=== PATIENT | male | born 1935 | race Caucasian/White ===

== ENCOUNTER 2019-03-13 09:14 | Inpatient (IN) | payer MEDICARE, BC ==
[~2019-03-13] VITALS: Ht 162.6 cm; Wt 54.4 kg
[2019-03-13] VITALS (7 sets, daily range): BP systolic 102–152; BP diastolic 44–68; BMI 20.6
[2019-03-13] MEDS ORDERED: PACERONE100 MG (09:21)
[2019-03-13] MEDS ORDERED: PROPECIA1 MG PO (09:21)
[2019-03-13] MEDS ORDERED: TIROSINT88 MCG PO (09:21)
[2019-03-13] MEDS ORDERED: PACERONE100 MG PO (09:21)
[2019-03-13] MEDS ORDERED: UROXATRAL10 MG PO (09:22)
[2019-03-13] MEDS ORDERED: ULTRAM50 MG PO (09:22)
[2019-03-13] MEDS ORDERED: SINGULAIR 4 MG C4 MG PO (09:22)
[2019-03-13] MEDS ORDERED: LOPRESSOR25 MG PO (09:23)
[2019-03-13] MEDS ORDERED: NEXIUM40 MG PO (09:23)
[2019-03-13] MEDS ORDERED: LIPITOR20 MG PO (09:28)
[2019-03-13] MEDS ORDERED: XARELTO10 MG PO (09:28)
[2019-03-13 10:14] LABS: HEMATOCRIT 32.4 % (42.0-54.0); HEMOGLOBIN 11.5 g/dL (13.5-17.5); MCHC 35.5 g/dL (31.0-37.0); MCV 92.8 fL (80.0-100.0); PLATELET COUNT 241 10x3/uL (130-400); RBC 3.49 10x6/uL (4.20-6.10); RDW 13.6 % (11.5-14.5); WBC 20.5 10x3/uL (4.8-10.8)
[2019-03-13 10:21] LABS: BILIRUBIN - TOTAL 0.66 mg/dL (0.2-1.3); CALCIUM 8.8 mg/dL (8.5-10.1); CARBON DIOXIDE 28.1 mmol/L (21.0-32.0); CREATININE - SERUM 1.2 mg/dL (0.6-1.3); POTASSIUM - SERUM 4.1 mmol/L (3.5-5.1); PROTEIN - SERUM 6.4 g/dL (6.4-8.2)
[2019-03-13 10:31] LABS: T4 THYROXINE 10.2 ug/dL (4.7-13.3); THYROID STIMULATING HORMONE 0.78 uIU/mL (0.36-3.74)
--- NOTE | 2019-03-13 11:20 | NUR ---
PATIENT SLEEPING; AWAKES TO VERBAL STIMULI; RESPIRATIONS EVEN AND UNLABORED; COLOR WNL FOR RACE; BLANKET GIVEN; NO OTHER NEEDS NOTED; FAMILY/PATIENT UPDATED ON PLAN OF CARE AND DELAYS IN CARE; WILL CONTINUE TO MONITOR.
[2019-03-13 12:11] LABS: APPEARANCE CLEAR (CLEAR); BILIRUBIN NEGATIVE (NEGATIVE); COLOR YELLOW (YELLOW); GLUCOSE NEGATIVE (NEGATIVE); KETONE NEGATIVE (NEGATIVE); NITRITE NEGATIVE (NEGATIVE); PROTEIN 1+ mg/dL (NEGATIVE); UROBILINOGEN NORMAL (NORMAL)
[2019-03-13 12:12] LABS: BACTERIA FEW /hpf (NONE SEEN); EPITHELIAL CELLS NSEEN /hpf (0-5); RED CELLS - URINE 0-5 /hpf (0-5); WHITE CELLS - URINE 0-5 /hpf (0-5)
--- NOTE | 2019-03-13 12:20 | NUR ---
FAMILY AT BEDSIDE; PATIENT SLEEPING; AROUSES TO VERBAL SITMULI; HE IS SLIGHTLY HARD OF HEARING AND NEEDS TO BE SPOKE TO DIRECTLY FOR HIM TO UNDERSTAND; NO NEEDS NOTED; FAMILY/PATIENT UPDATED ON PLAN OF CARE AND DELAYS IN CARE; WILL CONTINUE TO MONITOR.
[2019-03-13 12:34] LABS: LYMPHOCYTES 1 % (15-50); MONOCYTES 3 % (2-11); NEUTROPHILS 93 % (40-80)
[2019-03-13 12:35] LABS: PLATELET ESTIMATE NORMAL
--- NOTE | 2019-03-13 13:20 | NUR ---
ASSISTED PATEINT TO RESTROOM WITH THE USE OF A WHEELCHAIR; GAIT IS UNSTEADY AND HE REQUIRES ASSIST WITH AMBULATION; HE DENIES ANY OTHER NEEDS; FAMILY LEFT TO GET SOME LUNCH; PATIENT UPDATED ON PLAN OF CARE; WILL CONTINUE TO MONITOR.
[2019-03-13] MEDS ORDERED: TIMOPTIC 0.5 % O5 ML RIGHT EYE (14:18)
[2019-03-13] MEDS ORDERED: TRUSOPT 2 % OPT10 ML RIGHT EYE (14:19)
[2019-03-13] MEDS ORDERED: XALATAN 0.0052.5 ML LEFT EYE (14:20)
--- NOTE | 2019-03-13 15:47 | NUR ---
REC'D PT FROM ER NURSE. FAMILY AT BEDSIDE. PT AAOX1. PT "FEELING URGE TO PEE BUT CAN'T". PT CONTINUES TO ATTEMPT TO URNIATE WITHOUT SUCCESS. BLADDER SCAN-874ML. CALLED Shakira CHAVARRIA TO FOR 16 LUX[place]BOURGISH F/C. F/C PLACED BY STERILE TECHNIQUE. CLEAR YELLOW URINE DRAININF TO BAG BY GRAVITY. 1300ML NOTED. NO S/S OF ACUTE DISTRESS. CL IN PLACE.
[2019-03-13 17:34] LABS: % SATURATION 11 % (15-55); IRON 33 ug/dl (35-150); TOTAL IRON BIND CAPACITY 298 ug/dl (260-445); UNSAT IRON BIND CAPACITY 265 ug/dl (150-375)
--- NOTE | 2019-03-13 17:43 | NUR ---
PT ATE 100% OF MEAL. SUPERVISED PT AND PT DID WELL. IV TO L ARM BLOODY. CLEANED SITED AND PLACED GAUZE UNDERNEATH FOR PRESSURE. FLUSHED WELL AND EDUARD BACK BLOOD. NO S/S OF ACUTE DISTRESS. CL IN PLACE. AUDI ALARM ON.
--- NOTE | 2019-03-13 18:33 | NUR ---
SPOKE WITH BRAYAN, DAUGHTER, ALL AM MEDS GIVEN THIS MORNING.
--- NOTE | 2019-03-13 19:35 | NUR ---
ASSUMED PT CARE. PT ATTEMTING TO GET OOB. REDIRECTED AND ASST. BACK IN BED. FALL PRECATIONS IN PLACE. PT ALERT ONLY TO SELF. RR EVEN AND UNLABORED. NO FURHTER NEEDS EXPRESSED. NO S/S OF DISTRESS NOTED. WILL CPOC.
[2019-03-14 00:27] VITALS: BP 132/63
[2019-03-14 05:25] VITALS: BP 111/60
[2019-03-14 06:56] LABS: BASOPHILS 0.1 % (0-2); EOSINOPHILS 0.2 % (0-7); HEMATOCRIT 30.5 % (42.0-54.0); HEMOGLOBIN 10.9 g/dL (13.5-17.5); IMMATURE GRANULOCYTES 0.2 % (0-5); LYMPHOCYTES 8.3 % (15-50); MCH 32.3 pg (26.0-34.0); MCHC 35.7 g/dL (31.0-37.0); MEAN PLATELET VOLUME 10.8 fL (7.4-10.4); MONOCYTES 8.3 % (2-11); NEUTROPHILS 82.9 % (40-80); PLATELET COUNT 250 10x3/uL (130-400); RBC 3.37 10x6/uL (4.20-6.10); RDW 13.3 % (11.5-14.5)
[2019-03-14 06:59] LABS: MCV 90.5 fL (80.0-100.0); WBC 13.1 10x3/uL (4.8-10.8)
--- NOTE | 2019-03-14 07:15 | NUR ---
PT RESTING IN BED, VSS AND WNL. SHIFT ASSESSMENT PERFORMED. DENIES ANY NEEDS AT THIS TIME. WILL CONT TO FOLLOW POC
[2019-03-14 07:19] LABS: CALCIUM 8.1 mg/dL (8.5-10.1); CARBON DIOXIDE 25.3 mmol/L (21.0-32.0); GLUCOSE 91 mg/dL (74-106); UREA NITROGEN 12 mg/dL (7-18)
[2019-03-14 07:32] LABS: CALC OSMOLALITY 236 mosm/kg (275-300); CHLORIDE - SERUM 85 mmol/L (98-107); CREATININE - SERUM 0.7 mg/dL (0.6-1.3); POTASSIUM - SERUM 3.1 mmol/L (3.5-5.1); SODIUM 117 mmol/L (136-145); eGFR NON AFRICAN AMERICAN > 90 mL/min (90-120)
--- NOTE | 2019-03-14 07:41 | NUR ---
RECIEVED CALL FROM LAB THAT PT NA IS 117. PAGED RACHEL FAGAN AND WAS GIVEN NEW ORDER TO CONSULT RENAL. CONSULT ORDERED. WILL CONT TO FOLLOW POC
[2019-03-14 07:42] VITALS: BP 116/60
[2019-03-14 09:47] LABS: CALC OSMOLALITY 236 mosm/kg (275-300); CARBON DIOXIDE 28.3 mmol/L (21.0-32.0); CHLORIDE - SERUM 86 mmol/L (98-107); CREATININE - SERUM 0.7 mg/dL (0.6-1.3); GLUCOSE 85 mg/dL (74-106); POTASSIUM - SERUM 3.5 mmol/L (3.5-5.1); UREA NITROGEN 13 mg/dL (7-18); eGFR NON AFRICAN AMERICAN > 90 mL/min (90-120)
[2019-03-14 09:51] LABS: SODIUM 118 mmol/L (136-145)
--- NOTE | 2019-03-14 11:57 | NUR ---
PT RESTING IN BED, DENIES ANY NEEDS AT THIS TIME, WILL CONT TO FOLLOW POC
[2019-03-14 14:34] VITALS: BP 98/60
--- NOTE | 2019-03-14 16:30 | NUR ---
PIV TO PT LEFT FA INFILTRATED, PIV REMOVED WITH CATHETER TIP INTACT. 22G PIC INSERTED TO PT RIGHT UPPER ARM X2 ATTEMPT. PT TOLERATED WELL. WILL CONT TO FOLLOW POC
--- NOTE | 2019-03-14 16:54 | NUR ---
MEAL ASSISTANCE PROVIDED. PT ATE 50% DENIES ANY NEEDS AT THIS TIME. WILL CONT TO FOLLOW POC
--- NOTE | 2019-03-14 18:21 | NUR ---
PT IS BECOMING RESTLESS AND KEEPS STATING THAT HE WANTS SOME WATER. CALLED HIS DAUGHTER TO SEE IF SHE COULD COME SIT WITH PT AND DAUGHTER STATES SHE LIVES AN HOUR AWAY AND COULD NOT COME. WILL CONT TO ATTEMPT TO REDIRECT PT
--- NOTE | 2019-03-14 19:15 | NUR ---
PT IS PULLOING SOME AT GIBSON AND DEMANDING WATER I ATTEMPTED TO EXPLAIN THAT HE CAN NOT HAVE ANY FREE WATER AT THIS TIME SR X2 AND BED IS LOW AND LOCKED IV IS IN RT SHOULDER AREA PT IS ALERT BUT DOES NOT RETURN ANSWERS TO MY QUESTIONS. LCTA SKIN WARM AND DRY
[2019-03-14 19:48] VITALS: BP 144/61
--- NOTE | 2019-03-14 19:57 | NUR ---
PT BECAME AGITATED DURING VS CHECK GRABING MY ARM AND ATTEMPING TO TWIST MY WRIST BUT HE WAS CALM AFTERWARD AND ALLOWED LAB TO PREFORM BLOODDRAW
[2019-03-14 20:40] LABS: CALC OSMOLALITY 250 mosm/kg (275-300); CALCIUM 8.1 mg/dL (8.5-10.1); CARBON DIOXIDE 26.8 mmol/L (21.0-32.0); CHLORIDE - SERUM 92 mmol/L (98-107); CREATININE - SERUM 0.8 mg/dL (0.6-1.3); GLUCOSE 98 mg/dL (74-106); SODIUM 124 mmol/L (136-145); UREA NITROGEN 14 mg/dL (7-18); eGFR NON AFRICAN AMERICAN > 90 mL/min (90-120)
[2019-03-14 20:59] LABS: POTASSIUM - SERUM 3.8 mmol/L (3.5-5.1)
--- NOTE | 2019-03-15 00:34 | NUR ---
I have reviewed this patient and I concur with the Shift Assessment completed by the Licensed Practical Nurse today this shift.
[2019-03-15 00:56] VITALS: BP 145/60
[2019-03-15 06:15] LABS: BASOPHILS 0.1 % (0-2); EOSINOPHILS 0.4 % (0-7); HEMOGLOBIN 12.4 g/dL (13.5-17.5); IMMATURE GRANULOCYTES 0.3 % (0-5); LYMPHOCYTES 13.7 % (15-50); MCH 32.9 pg (26.0-34.0); MCHC 36.5 g/dL (31.0-37.0); MCV 90.2 fL (80.0-100.0); MONOCYTES 12.2 % (2-11); NEUTROPHILS 73.3 % (40-80); PLATELET COUNT 278 10x3/uL (130-400); RBC 3.77 10x6/uL (4.20-6.10); RDW 13.3 % (11.5-14.5)
[2019-03-15 06:38] VITALS: BP 190/42
[2019-03-15 06:52] LABS: CALC OSMOLALITY 259 mosm/kg (275-300); CALCIUM 8.7 mg/dL (8.5-10.1); CARBON DIOXIDE 27.9 mmol/L (21.0-32.0); CHLORIDE - SERUM 96 mmol/L (98-107); CREATININE - SERUM 0.8 mg/dL (0.6-1.3); GLUCOSE 91 mg/dL (74-106); POTASSIUM - SERUM 3.3 mmol/L (3.5-5.1); SODIUM 130 mmol/L (136-145); eGFR NON AFRICAN AMERICAN > 90 mL/min (90-120)
[2019-03-15 06:55] LABS: UREA NITROGEN 10 mg/dL (7-18)
--- NOTE | 2019-03-15 07:16 | NUR ---
NURSE WALKED INTO PT ROOM DUE TO AUDI ALARM. PT HAD GOTTEN BETWEEN THE 2 SIDE RAILS AND WAS STANDING UP. ONCE PT SEEN NURSE, HE SAT BACK DOWN BETWEEN RAILS AND LAID BACK DOWN. NURSE NOTICED THAT PT HAD BROKEN OFF THE TOP OF HIS STATLOCK THAT IS ATTACHED TO HIS THIGH. UPON WALKING TO THE OTHER SIDE OF THE BED, NURSE FOUND PT GIBSON CATHETER Y SITE LAYING IN THE FLOOR AND THE ACTUAL GIBSON TUBE THAT IS INSERTED INTO THE URETHRA LAYING NEXT TO PT. THE CATHETER TIP IS STILL INTACT. WHEN NURSE HELD UP THE CATHETER IN THE AIR TO EXAMINE IT, PT STATED, "SOMEBODY CUT THAT." NURSE SEARCHED PT BED AND NO CUTTING DEVICES WERE FOUND. WILL DISCUSS WITH
[2019-03-15 07:41] VITALS: BP 203/90
--- NOTE | 2019-03-15 07:57 | NUR ---
SPOKE TO YEIMY FAGAN REGARDING PT PULLING OUT HIS GIBSON. YEIMY FAGAN TOLD NURSE TO WAIT UNTIL 9AM AND PERFORM A BLADDER SCAN ON PT. IF PT HAS MORE THAN 300ML IN BLADDER THEN REPLACE GIBSON.
--- NOTE | 2019-03-15 09:20 | NUR ---
BLADDER SCAN SHOWS 820ML OF URINE IN PT BLADDER. 16FR GIBSON CATHETER INSERTED VIA STERILE TECHNIQUE. PT TOLERATED WELL.
--- NOTE | 2019-03-15 09:41 | MORECARE ---
CASE MANAGEMENT DISCHARGE SUMMARY PATIENT: ERICK HERNANDEZ UNIT: [id number] ADM DATE: 03/13/19 AGE: 83 : 34 SEX: M ROOM/BED: D.1211 AUTHOR: WILLIAM KURTZ PHYSICIAN: REFERRING PHYSICIAN: NATASHA DODD MD DATE OF SERVICE: 03/15/19 Discharge Plan Patient Name: ERICK HERNANDEZ Facility: [facility]:[place] : 1935 Planned Disposition: Anticipated Discharge Date: Discharge Date: Expected LOS: Initial Reviewer: [email or web address] Initial Review Date: 03/13/2019 Generated: 03/15/19 10:41 am DCP- Discharge Planning Updated by [email or web address]: Skyla Mclaughlin on 03/13/19 11:[address] Presents to ER w/daughter, Tiffanie Mckinley #[phone]. Patient lives w/daughter and S-I-L, Angel Mckinley #[phone]. Patient recently moved from [place] to his daughter's home in [facility]. Daughter states the patient sees an WELLNESS NURSE with [facility] she/he would not re-prescribe patients Ativan (long-time use) and he got kicked out of the office. Daughter states the patient has had numerous, increasing falls and over the past 2 days has become total care. States patient has dementia. Daughter states "I just can't take care of him anymore." Patient is incontinent of urine. Daughter is tearful. Daughter has POA of finances, only. Request NH PLACEMENT. Daughter states patient was in the during the [place] War, but was discharged because patient could not read nor write. Patient may possibly have VA benefits, but has not been seen at the VA. Provided daughter with a list of Nursing facility's and she states she would like for patient to go into a Skilled facility and eventually wants long-term placement. PCP: None. Pharmacy: [facility] next to [employer] [address]. DME: showerchair, Walker, back brace. CM will assist as needed with dc needs. DCPIA - Discharge Planning Initial Assessment Updated by [email or web address]: Skyla Mclaughlin on 03/14/19 5:37 pm * Is the patient Alert and Oriented? No * How many steps to enter\\exit or inside your home? Na * PCP None Was seeing an WELLNESS NURSE @[facility], but no longer. * [facility], [address] to [address] * Preadmission Environment Home with Family * ADLs Total Dependent * Equipment Rolling Walker Shower Chair * Other Equipment Back brace * List name and contact numbers for known caregivers / representatives who currently or will assist patient after discharge: Tiffanie Mckinley (dtr) #[phone]. Angel Mckinley (s-i-l) #[phone]. * Verbal permission to speak to the caregivers and representatives has been obtained from the patient. N/A * Community resources currently utilized None * Please name any agencies selected above. None at this time. Provided dtr with a list of Nsg/Rehab to choose from. Daughter states patient may have A benefits, but has not registered with VA * Additional services required to return to the preadmission environment? Yes * Can the patient safely return to the preadmission environment? No * Has this patient been hospitalized within the prior 30 days at any hospital? No Patient Name: ERICK HERNANDEZ Page [phone] at 0941 All edits/amendments must be made on the electronic document DICTATION DATE: 03/15/19940 MOLD MAKER HELPER: MG 03/15/19940 RPT#: [id number] DC DATE: STATUS: ADM IN [facility] [address] [place] [address] END OF REPORT
--- NOTE | 2019-03-15 11:25 | NUR ---
Rehab Prescreening Consult recieved and the chart has been reviewed. According to the PT eval this patient is to confused for therapy at this time. He has an OT eval ordered but pending. To qualify for the acute rehab a patient must be able to participate in 3 hrs of therapy 5 days a week. Nell Palacio RN Clinical liaison, Rehab
[2019-03-15 12:00] VITALS: BP 117/58
[2019-03-15 12:28] VITALS: Ht 162.6 cm; Wt 54.4 kg
--- NOTE | 2019-03-15 12:54 | MORECARE ---
CASE MANAGEMENT DISCHARGE SUMMARY PATIENT: ERICK HERNANDEZ UNIT: [id number] ADM DATE: 03/13/19 AGE: 83 : 34 SEX: M ROOM/BED: D.1211 AUTHOR: WILLIAM KURTZ PHYSICIAN: REFERRING PHYSICIAN: NATASHA DODD MD DATE OF SERVICE: 03/15/19 Discharge Plan Patient Name: ERICK HERNANDEZ Facility: [facility]:[place] : 1935 Planned Disposition: Anticipated Discharge Date: Discharge Date: Expected LOS: Initial Reviewer: [email or web address] Initial Review Date: 03/13/2019 Generated: 03/15/19 1:54 pm DCP- Discharge Planning Updated by [id number]: Skyla Mclaughlin on 03/13/19 11:[address] Presents to ER w/daughter, Tiffanie Mckinley #[phone]. Patient lives w/daughter and S-I-L, Angel Mckinley #[phone]. Patient recently moved from [place] to his daughter's home in [facility]. Daughter states the patient sees an PRODUCTION CONTROL COORDINATING CLERK with [facility] she/he would not re-prescribe patients Ativan (long-time use) and he got kicked out of the office. Daughter states the patient has had numerous, increasing falls and over the past 2 days has become total care. States patient has dementia. Daughter states "I just can't take care of him anymore." Patient is incontinent of urine. Daughter is tearful. Daughter has POA of finances, only. Request NH PLACEMENT. Daughter states patient was in the during the [place] War, but was discharged because patient could not read nor write. Patient may possibly have VA benefits, but has not been seen at the VA. Provided daughter with a list of Nursing facility's and she states she would like for patient to go into a Skilled facility and eventually wants long-term placement. PCP: None. Pharmacy: [facility] next to [address]. DME: showerchair, Walker, back brace. CM will assist as needed with dc needs. DCPIA - Discharge Planning Initial Assessment Updated by [email or web address]: Skyla Mclaughlin on 03/14/19 5:37 pm * Is the patient Alert and Oriented? No * How many steps to enter\\exit or inside your home? Na * PCP None Was seeing an PRODUCTION CONTROL COORDINATING CLERK @[facility], but no longer. * [facility]acy [facility], [address] to [address] * Preadmission Environment Home with Family * ADLs Total Dependent * Equipment Rolling Walker Shower Chair * Other Equipment Back brace * List name and contact numbers for known caregivers / representatives who currently or will assist patient after discharge: Tiffanie Mckinley (dtr) #[phone]. Angel Mckinley (s-i-l) #[phone]. * Verbal permission to speak to the caregivers and representatives has been obtained from the patient. N/A * Community resources currently utilized None * Please name any agencies selected above. None at this time. Provided dtr with a list of Nsg/Rehab to choose from. Daughter states patient may have A benefits, but has not registered with VA * Additional services required to return to the preadmission environment? Yes * Can the patient safely return to the preadmission environment? No * Has this patient been hospitalized within the prior 30 days at any hospital? No Last DP export: 03/15/19 8:41 a Patient Name: ERICK HERNANDEZ Page [phone] at 1254 All edits/amendments must be made on the electronic document DICTATION DATE: 03/15/19 125 OIL PROCESS STILLMAN: MG 03/15/19 1253 RPT#: [id number] DC DATE: STATUS: ADM IN [facility] [address] [place] [address] END OF REPORT
--- NOTE | 2019-03-15 14:14 | NUR ---
PT RESTING IN BED, DENIES ANY NEEDS AT THIS TIME, WILL CONT TO FOLLOW POC
[2019-03-15 14:52] VITALS: BP 82/44
--- NOTE | 2019-03-15 17:55 | NUR ---
PT RESTING IN BED, DENIES ANY NEEDS AT THIS TIME,AUDI ALARM ON AND TESTED. SIDE RAILS UP X3, CALL LIGHT WITHIN REACH WILL CONT TO FOLLOW POC
--- NOTE | 2019-03-15 19:25 | NUR ---
EVENING ROUNDS COMPLETE, PT LAYING IN BED. NO SIGNS OF DISTRESS, VSS, NO C/O PAIN AT THIS TIME. CL IN REACH, BED IN LOWEST POSITION. CONT WITH POC.
[2019-03-15 20:42] VITALS: BP 131/61
[2019-03-16 00:44] VITALS: BP 162/79
--- NOTE | 2019-03-16 00:55 | NUR ---
PT C/O CONSTIPATION. CONTACTED LAN HARTMAN VIA TELEPHONE. LAN HARTMAN ORDERED COLACE 100MG BID AND SENKOT 1 BID TO BE STARTED 03/16/19 IN AM. CONT WITH POC.
[2019-03-16 04:52] VITALS: BP 188/85
[2019-03-16 08:00] LABS: BASOPHILS 0.3 % (0-2); EOSINOPHILS 0.9 % (0-7); HEMATOCRIT 34.5 % (42.0-54.0); HEMOGLOBIN 12.4 g/dL (13.5-17.5); IMMATURE GRANULOCYTES 0.3 % (0-5); LYMPHOCYTES 13.4 % (15-50); MCH 32.6 pg (26.0-34.0); MCHC 35.9 g/dL (31.0-37.0); MCV 90.8 fL (80.0-100.0); MEAN PLATELET VOLUME 10.9 fL (7.4-10.4); MONOCYTES 14.3 % (2-11); NEUTROPHILS 70.8 % (40-80); PLATELET COUNT 295 10x3/uL (130-400); RDW 13.5 % (11.5-14.5); WBC 11.5 10x3/uL (4.8-10.8)
--- NOTE | 2019-03-16 08:00 | NUR ---
PT SITTING UP IN BED, DENIES ANY NEEDS AT THIS TIME. SHIFT ASSESSMENT PERFORMED. WILL CONT TO FOLLOW POC
[2019-03-16 08:18] VITALS: BP 149/80
[2019-03-16 08:31] LABS: CALC OSMOLALITY 270 mosm/kg (275-300); CALCIUM 8.8 mg/dL (8.5-10.1); CARBON DIOXIDE 28.9 mmol/L (21.0-32.0); CHLORIDE - SERUM 100 mmol/L (98-107); CREATININE - SERUM 0.8 mg/dL (0.6-1.3); GLUCOSE 83 mg/dL (74-106); POTASSIUM - SERUM 3.1 mmol/L (3.5-5.1); SODIUM 136 mmol/L (136-145); UREA NITROGEN 12 mg/dL (7-18); eGFR NON AFRICAN AMERICAN > 90 mL/min (90-120)
[2019-03-16 12:00] VITALS: BP 141/66
--- NOTE | 2019-03-16 12:57 | NUR ---
PT ASSISTED TO TOILET X2 ASSIST. DAUGHTER IN ROOM WITH PT.
--- NOTE | 2019-03-16 14:18 | NUR ---
ADMINISTERED PRN MEDICATION FOR A PAIN LEVEL OF 5/10 IN PT BACK. NO TROUBEL SWALLOWING. DENIES OTHER NEEDS. PT PAIN LEVEL WILL BE REASSESSED.
--- NOTE | 2019-03-16 14:42 | MORECARE ---
CASE MANAGEMENT DISCHARGE SUMMARY PATIENT: ERICK HERNANDEZ UNIT: [id number] ADM DATE: 03/13/19 AGE: 83 : 34 SEX: M ROOM/BED: D.1211 AUTHOR: WILLIAM KURTZ PHYSICIAN: REFERRING PHYSICIAN: NATASHA DODD MD DATE OF SERVICE: 03/16/19 Discharge Plan Patient Name: ERICK HERNANDEZ Facility: [facility]:[place] : 1935 Planned Disposition: Anticipated Discharge Date: Discharge Date: Expected LOS: Initial Reviewer: [email or web address] Initial Review Date: 03/13/2019 Generated: 03/16/19 3:41 pm DCP- Discharge Planning Updated by [id number]: Skyla Mclaughlin on 03/13/19 11:[address] Presents to ER w/daughter, Tiffanie Mckinley #[phone]. Patient lives w/daughter and S-I-L, Angel Mckinley #[phone]. Patient recently moved from [place] to his daughter's home in [facility]. Daughter states the patient sees an JUNIOR LINUX ADMINISTRATOR with [facility] she/he would not re-prescribe patients Ativan (long-time use) and he got kicked out of the office. Daughter states the patient has had numerous, increasing falls and over the past 2 days has become total care. States patient has dementia. Daughter states "I just can't take care of him anymore." Patient is incontinent of urine. Daughter is tearful. Daughter has POA of finances, only. Request NH PLACEMENT. Daughter states patient was in the during the [place] War, but was discharged because patient could not read nor write. Patient may possibly have VA benefits, but has not been seen at the VA. Provided daughter with a list of Nursing facility's and she states she would like for patient to go into a Skilled facility and eventually wants long-term placement. PCP: None. Pharmacy: [facility] next to [address]. DME: showerchair, Walker, back brace. CM will assist as needed with dc needs. DCPIA - Discharge Planning Initial Assessment Updated by [email or web address]: Skyla Mclaughlin on 03/14/19 5:37 pm * Is the patient Alert and Oriented? No * How many steps to enter\\exit or inside your home? Na * PCP None Was seeing an JUNIOR LINUX ADMINISTRATOR @[facility], but no longer. * [facility], [address] * Preadmission Environment Home with Family * ADLs Total Dependent * Equipment Rolling Walker Shower Chair * Other Equipment Back brace * List name and contact numbers for known caregivers / representatives who currently or will assist patient after discharge: Tiffanie Mckinley (dtr) #[phone]. Angel Mckinley (s-i-l) #[phone]. * Verbal permission to speak to the caregivers and representatives has been obtained from the patient. N/A * Community resources currently utilized None * Please name any agencies selected above. None at this time. Provided dtr with a list of Nsg/Rehab to choose from. Daughter states patient may have A benefits, but has not registered with [facility] * Additional services required to return to the preadmission environment? Yes * Can the patient safely return to the preadmission environment? No * Has this patient been hospitalized within the prior 30 days at any hospital? No External Providers External Provider: [facility] Next Contact Date: Service Request Date: Service Type: Resolution: Reviewer: Comments: Last DP export: 03/15/19 11:54 a Patient Name: ERICK HERNANDEZ Page [phone] at 1442 All edits/amendments must be made on the electronic document DICTATION DATE: 03/16/191440 PROGRAM THERAPIST: MG 03/16/19 144 RPT#: [id number] DC DATE: STATUS: ADM IN [facility] [address] [place] [address] END OF REPORT
--- NOTE | 2019-03-16 14:52 | MORECARE ---
CASE MANAGEMENT DISCHARGE SUMMARY PATIENT: ERCIK HERNANDEZ UNIT: [id number] ADM DATE: 03/13/19 AGE: 83 : 34 SEX: M ROOM/BED: D.1211 AUTHOR: WILLIAM KURTZ PHYSICIAN: REFERRING PHYSICIAN: NATASHA DODD MD DATE OF SERVICE: 03/16/19 Discharge Plan Patient Name: ERICK HERNANDEZ Facility: [facility]:[place] : 1935 Planned Disposition: Jail Facility Anticipated Discharge Date: Discharge Date: Expected LOS: Initial Reviewer: [email or web address] Initial Review Date: 03/13/2019 Generated: 03/16/19 3:52 pm Comments DCP- Discharge Planning Updated by [email or web address]: Asia Amanda on 03/16/19 1:[address] CM spoke with Daughter Tiffanie Echols she stated that she was interested in [facility] for skilled and possible LTC. SAQIB signed for [facility]. CM spoke with Sindhu Fuentes and faxed records. CM explained to Sindhu that daughter stated that patient was drafted to [employer] but was released d/t inability to read and write. Sindhu stated that they would check to see if patient qualifies for VA benefits. CM awaiting determination from [facility]. CM will continue to follow and assist as needed with discharge planning / needs. DCP- Discharge Planning Updated by [id number]: Skyla Mclaughlin on 03/13/19 11:[address] Presents to ER w/daughter, Tiffanie Mckinley #[phone]. Patient lives w/daughter and S-I-L, Angel Mckinley #[phone]. Patient recently moved from [place] to his daughter's home in [facility]. Daughter states the patient sees an FINANCIAL SYSTEMS ANALYST with [facility] she/he would not re-prescribe patients Ativan (long-time use) and he got kicked out of the office. Daughter states the patient has had numerous, increasing falls and over the past 2 days has become total care. States patient has dementia. Daughter states "I just can't take care of him anymore." Patient is incontinent of urine. Daughter is tearful. Daughter has POA of finances, only. Request NH PLACEMENT. Daughter states patient was in the during the [place] War, but was discharged because patient could not read nor write. Patient may possibly have VA benefits, but has not been [place] at the [facility]. Provided daughter with a list of Nursing facility's and she states she would like for patient to go into a Skilled facility and eventually wants long-term placement. PCP: None. Pharmacy: [facility] next to [employer] [address]. DME: showerchair, Walker, back brace. CM will assist as needed with dc needs. DCPIA - Discharge Planning Initial Assessment Updated by [id number]: Skyla Mclaughlin on 03/14/19 5:37 pm * Is the patient Alert and Oriented? No * How many steps to enter\\exit or inside your home? Na * PCP None Was seeing an FINANCIAL SYSTEMS ANALYST @[facility], but no longer. * Pharmacy [facility], next to [facility] [address] * Preadmission Environment Home with Family * ADLs Total Dependent * Equipment Rolling Walker Shower Chair * Other Equipment Back brace * List name and contact numbers for known caregivers / representatives who currently or will assist patient after discharge: Tiffanie Mckinley (dtr) #[phone]. Angel Mckinley (s-i-l) #[phone]. * Verbal permission to speak to the caregivers and representatives has been obtained from the patient. N/A * Community resources currently utilized None * Please name any agencies selected above. None at this time. Provided dtr with a list of Nsg/Rehab to choose from. Daughter states patient may have A benefits, but has not registered with [facility] * Additional services required to return to the preadmission environment? Yes * Can the patient safely return to the preadmission environment? No * Has this patient been hospitalized within the prior 30 days at any hospital? No Coverage Notice Reviewer: [email or web address] Bindu Patel Notice Issued Date-Time: 03/16/2019 12:00 Notice Type: Patient Choice Letter Notice Delivered To: Family Member Relationship to Patient: Daughter Engraver Automatic Name: Tiffanie Echols Delivery Method: HAND - Hand Delivered Astrid Days: Prior Verbal Notification: Recipient Understood Notice: Yes Recipient Signature: Yes Med Rec Note Co-signed by Attending: Coverage Notice Comment: Last DP export: 03/16/19 1:42 p Patient Name: ERICK HERNANDEZ Page 60192 at 1452 All edits/amendments must be made on the electronic document DICTATION DATE: 03/16/191451 CENTER CUSTOMER SERVICE ASSOCIATE: MG 03/16/191451 RPT#: [id number] DC DATE: STATUS: ADM IN [facility] [address] [place] [address] END OF REPORT
[2019-03-16 15:06] VITALS: BP 129/59
--- NOTE | 2019-03-16 17:55 | NUR ---
PT PIV TO UPPER ARM/CHEST REGION CONSTANTLY CAUSING ALARM ON IV PUMP TO ALARM AND CAUSING PT FUSTRATION. 22G PIV INSERTED TO PT RIGHT FA X1 ATTEMPT. PT TOLERATED WELL. IVF CONNECTED TO RIGHT FA IV.
--- NOTE | 2019-03-16 19:20 | NUR ---
EVENING ROUNDS COMPLET, PT LAYING IN BED, NO SIGNS OF DISTRESS NOTED. PT DENIES ANY PAIN AT THIS TIME. PT IS A&O X1 PERSON ONLY. CL IN REACH, BED IN LOWEST POSITION. CONT WITH POC.
--- NOTE | 2019-03-16 19:36 | MORECARE ---
CASE MANAGEMENT DISCHARGE SUMMARY PATIENT: ERICK HERNANDEZ UNIT: [id number] ADM DATE: 03/13/19 AGE: 83 : 34 SEX: M ROOM/BED: D.1211 AUTHOR: JERARDO,DOC PHYSICIAN: REFERRING PHYSICIAN: NATASHA DODD MD DATE OF SERVICE: 03/16/19 Discharge Plan Patient Name: ERICK HERNANDEZ Facility: [facility]:[place] : 1935 Planned Disposition: Fpc Facility Anticipated Discharge Date: Discharge Date: Expected LOS: Initial Reviewer: [id number] Initial Review Date: 03/13/2019 Generated: 03/16/19 8:36 pm Comments DCP- Discharge Planning Updated by [email or web address]: Asia Patel on 03/16/19 6:[address] CM received a call back from Sindhu Fuentes that patient will require a RAJAT prior to discharge to SNF. CM will continue to follow and assist as needed with discharge planning / needs. DCP- Discharge Planning Updated by [id number]: Asia Patel on 03/16/19 1:[address] CM spoke with Daughter Tiffanie Echols she stated that she was interested in [facility] for skilled and possible LTC. SAQIB signed for [facility]. CM spoke with Sindhu Fuentes and faxed records. CM explained to Sindhu that daughter stated that patient was drafted to [place] [employer] but was released d/t inability to read and write. Sindhu stated that they would check to see if patient qualifies for VA benefits. CM awaiting determination from [facility]. CM will continue to follow and assist as needed with discharge planning / needs. DCP- Discharge Planning Updated by [id number]: Skyla Mclaughlin on 03/13/19 11:[address] Presents to ER w/daughter, Tiffanie Mckinley #[phone]. Patient lives w/daughter and S-I-L, Angel Mckinley #[phone]. Patient recently moved from [place] to his daughter's home in [place] [facility]. Daughter states the patient sees an SECURITY AUDITOR with [facility] she/he would not re-prescribe patients Ativan (long-time use) and he got kicked out of the office. Daughter states the patient has had numerous, increasing falls and over the past 2 days has become total care. States patient has dementia. Daughter states "I just can't take care of him anymore." Patient is incontinent of urine. Daughter is tearful. Daughter has POA of finances, only. Request NH PLACEMENT. Daughter states patient was in the during the [place], but was discharged because patient could not read nor write. Patient may possibly have VA benefits, but has not been seen at the VA. Provided daughter with a list of Nursing facility's and she states she would like for patient to go into a Skilled facility and eventually wants long-term placement. PCP: None. Pharmacy: [facility] next to [employer]. DME: showerchair, Walker, back brace. CM will assist as needed with dc needs. DCPIA - Discharge Planning Initial Assessment Updated by [id number]: Skyla Mclaughlin on 03/14/19 5:37 pm * Is the patient Alert and Oriented? No * How many steps to enter\\exit or inside your home? Na * PCP None Was seeing an SECURITY AUDITOR @[facility], but no longer. * Pharmacy [facility], next to [employer] * Preadmission Environment Home with Family * ADLs Total Dependent * Equipment Rolling Walker Shower Chair * Other Equipment Back brace * List name and contact numbers for known caregivers / representatives who currently or will assist patient after discharge: Tiffanie Mckinley (dtr) #[phone]. Angel Mckinley (s-i-l) #[phone]. * Verbal permission to speak to the caregivers and representatives has been obtained from the patient. N/A * Community resources currently utilized None * Please name any agencies selected above. None at this time. Provided dtr with a list of Nsg/Rehab to choose from. Daughter states patient may have A benefits, but has not registered with VA * Additional services required to return to the preadmission environment? Yes * Can the patient safely return to the preadmission environment? No * Has this patient been hospitalized within the prior 30 days at any hospital? No Coverage Notice Reviewer: [id number] Bindu Patel Notice Issued Date-Time: 03/16/2019 12:00 Notice Type: Patient Choice Letter Notice Delivered To: Family Member Relationship to Patient: Daughter Pediatric Dentist Name: Tiffanie Echols Delivery Method: HAND - Hand Delivered Astrid Days: Prior Verbal Notification: Recipient Understood Notice: Yes Recipient Signature: Yes Med Rec Note Co-signed by Attending: Coverage Notice Comment: Last DP export: 03/16/19 1:52 p Patient Name: ERICK HERNANDEZ Page [id number] at 1936 All edits/amendments must be made on the electronic document DICTATION DATE: 03/16/191935 TENANT RELATIONS COORDINATOR: MG 03/16/191935 RPT#: [id number] DC DATE: STATUS: ADM IN [facility] [address] [place] [address] END OF REPORT
[2019-03-16 21:00] VITALS: BP 169/85
[2019-03-17 06:55] LABS: BASOPHILS 0.2 % (0-2); EOSINOPHILS 1.3 % (0-7); HEMATOCRIT 36.3 % (42.0-54.0); HEMOGLOBIN 13.1 g/dL (13.5-17.5); IMMATURE GRANULOCYTES 0.3 % (0-5); MCH 32.8 pg (26.0-34.0); MCHC 36.1 g/dL (31.0-37.0); MEAN PLATELET VOLUME 10.9 fL (7.4-10.4); MONOCYTES 12.7 % (2-11); NEUTROPHILS 65.5 % (40-80); PLATELET COUNT 303 10x3/uL (130-400); RBC 3.99 10x6/uL (4.20-6.10); RDW 13.4 % (11.5-14.5); WBC 10.1 10x3/uL (4.8-10.8)
[2019-03-17 07:14] LABS: CALC OSMOLALITY 269 mosm/kg (275-300); CALCIUM 8.4 mg/dL (8.5-10.1); CARBON DIOXIDE 27.9 mmol/L (21.0-32.0); CHLORIDE - SERUM 100 mmol/L (98-107); CREATININE - SERUM 0.7 mg/dL (0.6-1.3); GLUCOSE 90 mg/dL (74-106); POTASSIUM - SERUM 3.3 mmol/L (3.5-5.1); SODIUM 135 mmol/L (136-145); UREA NITROGEN 12 mg/dL (7-18); eGFR NON AFRICAN AMERICAN > 90 mL/min (90-120)
--- NOTE | 2019-03-17 07:51 | NUR ---
ROUNDING DONE WITH PATIENT STATING "I'M TANGLED UP". BED COVERS, BILATERAL SCD'S ON AND IN USE, GIBSON CATH PATENT WITH CLEAR YELLOW URINE ALL STRAIGHTEDED OUT. RIGHT UPPER ARM PIV SEEN WITH SALINE LOCK. RIGHT FA PIV SEEN WITH NS INFUSING AT 60 CC/HR. ON EP, K+ IS 3.3. WILL COVER WITH ORAL SUPPLEMENTS. AUDI MAT ALARM IS ON AND IN USE. 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 CALL LIGHT IN LAP FOR USE.
[2019-03-17 08:11] VITALS: BP 161/95
--- NOTE | 2019-03-17 09:40 | NUR ---
NUTRITION F/U PT TOLERATING LOW NA+ MECH SOFT DIET. 50% INTAKE MOST MEALS. +BM CHARTED. WT 120#. WILL CONTINUE TO PROVIDE DIET, MONITOR PO INTAKE. ADD ENSURE TO MEALS. RD FOLLOWING
[2019-03-17 12:21] VITALS: BP 138/69
--- NOTE | 2019-03-17 13:39 | NUR ---
PATIENT TO HAVE A LARGE BOWEL MOVEMENT BUT THERE WAS NO [place] HAT FOR COLLECTION IN PLACE. WILL TRY AGAIN.
--- NOTE | 2019-03-17 13:44 | NUR ---
TO RADIOLOGY VIA [facility].
--- NOTE | 2019-03-17 14:12 | NUR ---
RETUNRS FROM RADIOLOGY.
--- NOTE | 2019-03-17 14:15 | NUR ---
POTASSIUM REDRAW WITH RESULT OF 3.9.
--- NOTE | 2019-03-17 14:28 | NUR ---
OT NOTE: PT COMPLETED BED MOB WITH CGA. PT REQUIRED MOD VERBAL CUES FOR INCREASED I WITH SCOOTING UP IN BED. PT COMPLETED EOB SITTING WITH SPV. PT COMPLETED BUE AROM EXS AT EOB WITH SPV. PT COMPLETED FACE WASH WITH SET UP. PT PLEASANT AND ACTIVELY PARTICIPATED. FAMILY AT BEDSIDE AT END OF SESSION. THANK YOU, TELLO PARRA
[2019-03-17 15:46] VITALS: BP 118/60
--- NOTE | 2019-03-17 17:24 | NUR ---
STOOL SPECIMEN SENT TO LAB.
[2019-03-17 20:53] VITALS: BP 115/56
[2019-03-18 00:06] VITALS: BP 147/68
[2019-03-18 06:16] VITALS: BP 163/67
[2019-03-18 06:23] LABS: BASOPHILS 0.2 % (0-2); EOSINOPHILS 2.9 % (0-7); HEMATOCRIT 35.5 % (42.0-54.0); HEMOGLOBIN 12.5 g/dL (13.5-17.5); IMMATURE GRANULOCYTES 0.4 % (0-5); MCH 32.7 pg (26.0-34.0); MCHC 35.2 g/dL (31.0-37.0); MCV 92.9 fL (80.0-100.0); MEAN PLATELET VOLUME 10.7 fL (7.4-10.4); MONOCYTES 10.6 % (2-11); NEUTROPHILS 64.9 % (40-80); PLATELET COUNT 267 10x3/uL (130-400); RBC 3.82 10x6/uL (4.20-6.10); RDW 13.7 % (11.5-14.5); WBC 10.4 10x3/uL (4.8-10.8)
[2019-03-18 06:39] LABS: CALCIUM 8.5 mg/dL (8.5-10.1); CHLORIDE - SERUM 98 mmol/L (98-107); GLUCOSE 88 mg/dL (74-106); POTASSIUM - SERUM 3.8 mmol/L (3.5-5.1); SODIUM 133 mmol/L (136-145); eGFR NON AFRICAN AMERICAN 85 mL/min (90-120)
[2019-03-18 06:40] LABS: CALC OSMOLALITY 266 mosm/kg (275-300); CREATININE - SERUM 0.9 mg/dL (0.6-1.3); UREA NITROGEN 18 mg/dL (7-18)
--- NOTE | 2019-03-18 07:17 | NUR ---
ROUNDING DONE WITH PATIENT RESTING WITH EYES CLOSED. RESP ARE EVEN. RIGHT UPPER ARM AND RIGHT FA BOTH WITH SALINE LOCK. ON EP, K+ IS 3.8. ON FLUID RESTRICTION. GIBSON CATH PATENT WITH YELLOW URINE. AUDI MAT ALARM IS ON AND IN USE. BILATERAL SCD'S ARE ON AND IN USE.
[2019-03-18 08:29] VITALS: BP 118/62
[2019-03-18 11:03] VITALS: BP 111/58
--- NOTE | 2019-03-18 15:31 | NUR ---
OT NOTE: PT COMPLETED BED MOB WITH CUES FOR SUPINE TO SIT. PT COMPLETED SIDE STEPPING WITH CGA. PT BUE AROM AT EOB WITH SBA. PT REQUIRED CUES FOR INCREASED SAFETY. PT EDUCATED AUTOMOTIVE PARTS SPECIALIST LIGHT. FAMILY AT BEDSIDE. FAMILY MEMEBER STATED SHE WOULD LIKE HIM TO GO TO INPATIENT REHAB. THANK YOU, TELLO PARSONS
[2019-03-18 16:02] VITALS: BP 92/47
--- NOTE | 2019-03-18 16:56 | NUR ---
PATIENT HAS BEEN ASSSITED TO RESTROOM FOR STOOLS X 3 THIS SHIFT. PATIENT STOOL IS VERY LIGHT IN COLOR (BARIUM ?). AUDI MAT ALARM IS ON AND IN USE. PATIENT IS USING HIS CALL LIGHT.
--- NOTE | 2019-03-18 18:20 | NUR ---
USES CALL LIGHT FOR ASSSITANCE TO RESTROOM FOR PASSING A LIGHT BROWN LIQUID STOOL.
--- NOTE | 2019-03-18 19:10 | NUR ---
EVENING ROUNDS COMPLETE, PT LAYING IN BED, NO SIGNS OF DISTRESS. VSS, NO C/O PAIN. PT DENIES ANY NEEDS AT THIS TIME. CL IN REACH, BED IN LOWEST POSITION, AUDI ALARM ON. CONT WITH POC.
[2019-03-18 20:09] VITALS: BP 135/63
[2019-03-19 03:31] VITALS: BP 110/72
[2019-03-19 06:47] LABS: BASOPHILS 0.2 % (0-2); EOSINOPHILS 3.4 % (0-7); HEMATOCRIT 33.6 % (42.0-54.0); HEMOGLOBIN 11.7 g/dL (13.5-17.5); IMMATURE GRANULOCYTES 0.3 % (0-5); LYMPHOCYTES 21.7 % (15-50); MCH 32.2 pg (26.0-34.0); MCHC 34.8 g/dL (31.0-37.0); MCV 92.6 fL (80.0-100.0); MEAN PLATELET VOLUME 10.6 fL (7.4-10.4); MONOCYTES 9.4 % (2-11); PLATELET COUNT 277 10x3/uL (130-400); RBC 3.63 10x6/uL (4.20-6.10); RDW 13.7 % (11.5-14.5)
[2019-03-19 06:58] LABS: CALC OSMOLALITY 269 mosm/kg (275-300); CALCIUM 8.2 mg/dL (8.5-10.1); CARBON DIOXIDE 27.5 mmol/L (21.0-32.0); CHLORIDE - SERUM 99 mmol/L (98-107); GLUCOSE 101 mg/dL (74-106); POTASSIUM - SERUM 3.4 mmol/L (3.5-5.1); SODIUM 133 mmol/L (136-145); eGFR NON AFRICAN AMERICAN 76 mL/min (90-120)
[2019-03-19 07:07] LABS: UREA NITROGEN 24 mg/dL (7-18)
--- NOTE | 2019-03-19 08:25 | NUR ---
PT STATES HE FEELS THE NEED TO URINATE. PT ASSISTED TO SIT HIGHER IN BED AND GIBSON DRAINING AT THIS TIME. PT STATES "THAT FEELS BETTER." PT DENIES FURTHER NEEDS. WCTM.
--- NOTE | 2019-03-19 08:45 | MORECARE ---
CASE MANAGEMENT DISCHARGE SUMMARY PATIENT: ERICK HERNANDEZ UNIT: [id number] ADM DATE: 03/13/19 AGE: 83 : 34 SEX: M ROOM/BED: D.1211 AUTHOR: JERARDO,DOC PHYSICIAN: REFERRING PHYSICIAN: NATASHA DODD MD DATE OF SERVICE: 03/19/19 Discharge Plan Patient Name: ERICK HERNANDEZ Facility: [facility]:[place] : 1935 Planned Disposition: Penitentiary Facility Anticipated Discharge Date: Discharge Date: Expected LOS: Initial Reviewer: [id number] Initial Review Date: 03/13/2019 Generated: 03/19/19 9:45 am DCP- Discharge Planning Updated by [email or web address]: Asia Patel on 03/16/19 6:[address] CM received a call back from Sindhu Fuentes that patient will require a RAJAT prior to discharge to SNF. CM will continue to follow and assist as needed with discharge planning / needs. DCP- Discharge Planning Updated by [email or web address]: Asia Patel on 03/16/19 1:[address] CM spoke with Daughter Tiffanie Echols she stated that she was interested in [facility] for skilled and possible LTC. SAQIB signed for [facility]. CM spoke with Sindhu Fuentes and faxed records. CM explained to Sindhu that daughter stated that patient was drafted to [place] but was released d/t inability to read and write. Sindhu stated that they would check to see if patient qualifies for VA benefits. CM awaiting determination from [facility]. CM will continue to follow and assist as needed with discharge planning / needs. DCP- Discharge Planning Updated by [email or web address]: Skyla Mclaughlin on 03/13/19 11:[address] Presents to ER w/daughter, Tiffanie Mckinley #[phone]. Patient lives w/daughter and S-I-L, Angel Mckinley #[phone]. Patient recently moved from [place] to his daughter's home in [place]. Daughter states the patient sees an CLINICAL MATERIAL HANDLER with [facility] she/he would not re-prescribe patients Ativan (long-time use) and he got kicked out of the office. Daughter states the patient has had numerous, increasing falls and over the past 2 days has become total care. States patient has dementia. Daughter states "I just can't take care of him anymore." Patient is incontinent of urine. Daughter is tearful. Daughter has POA of finances, only. Request NH PLACEMENT. Daughter states patient was in the during the [place], but was discharged because patient could not read nor write. Patient may possibly have VA benefits, but has not been seen at the VA. Provided daughter with a list of Nursing facility's and she states she would like for patient to go into a Skilled facility and eventually wants long-term placement. PCP: None. Pharmacy: [facility] next to [employer]. DME: showerchair, Walker, back brace. CM will assist as needed with dc needs. DCPIA - Discharge Planning Initial Assessment Updated by [id number]: Skyla Mclaughlin on 03/14/19 5:37 pm * Is the patient Alert and Oriented? No * How many steps to enter\\exit or inside your home? Na * PCP None Was seeing an CLINICAL MATERIAL HANDLER @[facility], but no longer. * Pharmacy [facility], next to [employer] * Preadmission Environment Home with Family * ADLs Total Dependent * Equipment Rolling Walker Shower Chair * Other Equipment Back brace * List name and contact numbers for known caregivers / representatives who currently or will assist patient after discharge: Tiffanie Mckinley (dtr) #[phone]. Angel Mckinley (s-i-l) #[phone]. * Verbal permission to speak to the caregivers and representatives has been obtained from the patient. N/A * Community resources currently utilized None * Please name any agencies selected above. None at this time. Provided dtr with a list of Nsg/Rehab to choose from. Daughter states patient may have A benefits, but has not registered with VA * Additional services required to return to the preadmission environment? Yes * Can the patient safely return to the preadmission environment? No * Has this patient been hospitalized within the prior 30 days at any hospital? No External Providers [place] [facility] Date: Service Request Date: Service Type: Resolution: Reviewer: Comments: Coverage Notice Reviewer: [email or web address] Bindu Patel Notice Issued Date-Time: 03/16/2019 12:00 Notice Type: Patient Choice Letter Notice Delivered To: Family Member Relationship to Patient: Daughter Boilermaker Fitter Name: Tiffanie Echols Delivery Method: HAND - Hand Delivered Astrid Days: Prior Verbal Notification: Recipient Understood Notice: Yes Recipient Signature: Yes Med Rec Note Co-signed by Attending: Coverage Notice Comment: Last DP export: 03/16/19 6:36 p Patient Name: ERICK HERNANDEZ Page [id number] at 0845 All edits/amendments must be made on the electronic document DICTATION DATE: 03/19/19844 PIT MANAGER: MG 03/19/1946 RPT#: [id number] DC DATE: STATUS: ADM IN [facility] [address] [place] [address] END OF REPORT
[2019-03-19 08:51] VITALS: BP 167/85
--- NOTE | 2019-03-19 08:52 | MORECARE ---
CASE MANAGEMENT DISCHARGE SUMMARY PATIENT: ERICK HERNANDEZ UNIT: [id number] ADM DATE: 03/13/19 AGE: 83 : 34 SEX: M ROOM/BED: D.1211 AUTHOR: JERARDODOC PHYSICIAN: REFERRING PHYSICIAN: NATASHA DODD MD DATE OF SERVICE: 03/19/19 Discharge Plan Patient Name: ERICK HERNANDEZ Facility: [facility]:[place] : 1935 Planned Disposition: Jail Facility Anticipated Discharge Date: Discharge Date: Expected LOS: Initial Reviewer: [id number] Initial Review Date: 03/13/2019 Generated: 03/19/19 9:51 am Comments DCP- Discharge Planning Updated by [id number]: Leslee Anguiano on 03/19/19 7:[address] RAJAT SENT OFF DCP- Discharge Planning Updated by [id number]: Asia Patel on 03/16/19 6:[address] CM received a call back from Sindhu Fuentes that patient will require a RAJAT prior to discharge to SNF. CM will continue to follow and assist as needed with discharge planning / needs. DCP- Discharge Planning Updated by [email or web address]: Asia Patel on 03/16/19 1:[address] CM spoke with Daughter Tiffanie Echols she stated that she was interested in [facility] for skilled and possible LTC. SAQIB signed for [facility]. CM spoke with Sindhu Fuentes and faxed records. CM explained to Sindhu that daughter stated that patient was drafted to [place] [employer] but was released d/t inability to read and write. Sindhu stated that they would check to see if patient qualifies for VA benefits. CM awaiting determination from [facility]. CM will continue to follow and assist as needed with discharge planning / needs. DCP- Discharge Planning Updated by [email or web address]: Skyla Mclaughlin on 03/13/19 11:[address] Presents to ER w/daughter, Tiffanie Mckinley #[phone]. Patient lives w/daughter and S-I-L, Angel Mckinley #[phone]. Patient recently moved from [place] to his daughter's home [place] [facility]. Daughter states the patient sees an BRAZING MACHINE FEEDER with [facility] she/he would not re-prescribe patients Ativan (long-time use) and he got kicked out of the office. Daughter states the patient has had numerous, increasing falls and over the past 2 days has become total care. States patient has dementia. Daughter states "I just can't take care of him anymore." Patient is incontinent of urine. Daughter is tearful. Daughter has POA of finances, only. Request NH PLACEMENT. Daughter states patient was in the during the [place], but was discharged because patient could not read nor write. Patient may possibly have VA benefits, but has not been seen at the [facility]. Provided daughter with a list of Nursing facility's and she states she would like for patient to go into a Skilled facility and eventually wants long-term placement. PCP: None. Pharmacy: [facility] to [facility]. DME: showerchair, Walker, back brace. CM will assist as needed with dc needs. DCPIA - Discharge Planning Initial Assessment Updated by [id number]: Skyla Mclaughlin on 03/14/19 5:37 pm * Is the patient Alert and Oriented? No * How many steps to enter\\exit or inside your home? Na * PCP None Was seeing an BRAZING MACHINE FEEDER @[facility], but no longer. * [facility] * Preadmission Environment Home with Family * ADLs Total Dependent * Equipment Rolling Walker Shower Chair * Other Equipment Back brace * List name and contact numbers for known caregivers / representatives who currently or will assist patient after discharge: Tiffanie Mckinley (dtr) #[phone]. Angel Mckinley (s-i-l) #[phone]. * Verbal permission to speak to the caregivers and representatives has been obtained from the patient. N/A * Community resources currently utilized None * Please name any agencies selected above. None at this time. Provided dtr with a list of Nsg/Rehab to choose from. Daughter states patient may have A benefits, but has not registered with VA * Additional services required to return to the preadmission environment? Yes * Can the patient safely return to the preadmission environment? No * Has this patient been hospitalized within the prior 30 days at any hospital? No Coverage Notice Reviewer: [id number] - Asia Patel Notice Issued Date-Time: 03/16/2019 12:00 Notice Type: Patient Choice Letter Notice Delivered To: Family Member Relationship to Patient: Daughter Injection Maintenance Technician Name: Tiffanie Echols Delivery Method: HAND - Hand Delivered Astrid Days: Prior Verbal Notification: Recipient Understood Notice: Yes Recipient Signature: Yes Med Rec Note Co-signed by Attending: Coverage Notice Comment: Last DP export: 03/19/19 7:45 a Patient Name: ERICK HERNANDEZ Page [id number] at 0852 All edits/amendments must be made on the electronic document DICTATION DATE: 03/19/19850 TRANSIT MANAGER: MG 03/19/19850 RPT#: [id number] DC DATE: STATUS: ADM IN [facility] [address] [place] [address] END OF REPORT
--- NOTE | 2019-03-19 10:09 | NUR ---
PT AM MEDS ADMINISTERED. PT BRIGITTE AND ARIAN HELD D/T WATERY STOOLS YESTERDAY. WCTM.
[2019-03-19 12:01] VITALS: BP 102/50
--- NOTE | 2019-03-19 12:30 | MORECARE ---
CASE MANAGEMENT DISCHARGE SUMMARY PATIENT: ERICK HERNANDEZ UNIT: [id number] ADM DATE: 03/13/19 AGE: 83 : 34 SEX: M ROOM/BED: D.1211 AUTHOR: JERARDODOC PHYSICIAN: REFERRING PHYSICIAN: NATASHA DODD MD DATE OF SERVICE: 03/19/19 Discharge Plan Patient Name: ERICK HERNANDEZ Facility: [facility]:[place] : 1935 Planned Disposition: Jail Facility Anticipated Discharge Date: 03/19/19 Discharge Date: Expected LOS: 6 Initial Reviewer: [email or web address] Initial Review Date: 03/13/2019 Generated: 03/19/19 1:29 pm Comments DCP- Discharge Planning Updated by [id number]: Leslee Anguiano on 03/19/19 7:[address] RAJAT SENT OFF DCP- Discharge Planning Updated by [email or web address]: Asia Patel on 03/16/19 6:[address] CM received a call back from Sindhu Fuentes that patient will require a RAJAT prior to discharge to SNF. CM will continue to follow and assist as needed with discharge planning / needs. DCP- Discharge Planning Updated by [id number]: Asia Patel on 03/16/19 1:[address] CM spoke with Daughter Tiffanie Echols she stated that she was interested in [facility] for skilled and possible LTC. SAQIB signed for [facility]. CM spoke with Sindhu Fuentes and faxed records. CM explained to Sindhu that daughter stated that patient was drafted to [place] [employer] but was released d/t inability to read and write. Sindhu stated that they would check to see if patient qualifies for VA benefits. CM awaiting determination from The [facility]. CM will continue to follow and assist as needed with discharge planning / needs. DCP- Discharge Planning Updated by [id number]: Skyla Mclaughlin on 03/13/19 11:[address] Presents to ER w/daughter, Tiffanie Mckinley #[phone]. Patient lives w/daughter and S-I-L, Angel Mckinley #[phone]. Patient recently moved from [place] to his daughter's home in [facility] [facility]. Daughter states the patient sees an PROJECT DESIGN ENGINEER with [facility] she/he would not re-prescribe patients Ativan (long-time use) and he got kicked out of the office. Daughter states the patient has had numerous, increasing falls and over the past 2 days has become total care. States patient has dementia. Daughter states "I just can't take care of him anymore." Patient is incontinent of urine. Daughter is tearful. Daughter has POA of finances, only. Request NH PLACEMENT. Daughter states patient was in the during the [place] War, but was discharged because patient could not read nor write. Patient may possibly have VA benefits, but has not been seen at the VA. Provided daughter with a list of Nursing facility's and she states she would like for patient to go into a Skilled facility and eventually wants long-term placement. PCP: None. Pharmacy: [facility] next to [employer]. DME: showerchair, Walker, back brace. CM will assist as needed with dc needs. DCPIA - Discharge Planning Initial Assessment Updated by [email or web address]: Skyla Mclaughlin on 03/14/19 5:37 pm * Is the patient Alert and Oriented? No * How many steps to enter\\exit or inside your home? Na * PCP None Was seeing an PROJECT DESIGN ENGINEER @[facility], but no longer. * Pharmacy [facility], next to [employer] * Preadmission Environment Home with Family * ADLs Total Dependent * Equipment Rolling Walker Shower Chair * Other Equipment Back brace * List name and contact numbers for known caregivers / representatives who currently or will assist patient after discharge: Tiffanie Mckinley (dtr) #[phone]. Angel Mckinley (s-i-l) #[phone]. * Verbal permission to speak to the caregivers and representatives has been obtained from the patient. N/A * Community resources currently utilized None * Please name any agencies selected above. None at this time. Provided dtr with a list of Nsg/Rehab to choose from. Daughter states patient may have A benefits, but has not registered with VA * Additional services required to return to the preadmission environment? Yes * Can the patient safely return to the preadmission environment? No * Has this patient been hospitalized within the prior 30 days at any hospital? No Coverage Notice Reviewer: [email or web address] Bindu Patel Notice Issued Date-Time: 03/16/2019 12:00 Notice Type: Patient Choice Letter Notice Delivered To: Family Member Relationship to Patient: Daughter Mobile Home Lot Utility Worker Name: Tiffanie Echols Delivery Method: HAND - Hand Delivered Astrid Days: Prior Verbal Notification: Recipient Understood Notice: Yes Recipient Signature: Yes Med Rec Note Co-signed by Attending: Coverage Notice Comment: Last DP export: 03/19/19 7:52 a Patient Name: ERICK HERNANDEZ Page [id number] at 1230 All edits/amendments must be made on the electronic document DICTATION DATE: 03/19/191228 DEVELOPER ADVOCATE: MG 03/19/191228 RPT#: [id number] DC DATE: STATUS: ADM IN [facility] [address] [place] [address] END OF REPORT
--- NOTE | 2019-03-19 12:52 | MORECARE ---
CASE MANAGEMENT DISCHARGE SUMMARY PATIENT: ERICK HERNANDEZ UNIT: [id number] ADM DATE: 03/13/19 AGE: 83 : 34 SEX: M ROOM/BED: D.1211 AUTHOR: WILLIAM KURTZ PHYSICIAN: REFERRING PHYSICIAN: NATASHA DODD MD DATE OF SERVICE: 03/19/19 Discharge Plan Patient Name: ERICK HERNANDEZ Facility: [facility]:[place] : 1935 Planned Disposition: Fci Facility Anticipated Discharge Date: 03/19/19 Discharge Date: Expected LOS: 6 Initial Reviewer: [id number] Initial Review Date: 03/13/2019 Generated: 03/19/19 1:51 pm Comments DCP- Discharge Planning Updated by [id number]: Melita Cabrera on 03/19/19 11:[address] 0830 CM NOTIFIED BY PAMELA MOSLEY, THAT THE RAJAT HAS BEEN RECEIVED. PLAN FOR DISCHARGE TO DAY. [address] [facility]. PAMELA SPOKE WITH WALDEMAR PERSAUD AT [phone]. PRIMARY NURSE TO CALL REPORT. PLAN FOR TRANSPORTATION PICKUP AT 1600. PAMELA NATARAJAN, WILL FORWARD RAJAT RESPONSE TO [facility]. 1210 THE PATIENT'S DAUGHTER, MS JEAN BAPTISTE CALLED. SHE STATES SHE THOUGHT THE PATIENT WAS GOING TO ACUTE REHAB FROM CONVERSATION SHE HAD YESTERDAY. PAMELA REVIEWED ALL CASE MANAGEMENT'S NOTES. PAMELA REVIEWED OT/PT NOTES. PAMELA REVIEWED ACUTE REHAB ASSESSMENT. THE DAUGHTERS STATES SHE UNDERSTANDS WHY HE IS GOING TO SKILLED REHAB. SHE IS IN AGREEMENT WITH THE PLAN. SHE ASK THAT CM TELL HER FATHER THAT SHE WILL SEE HIM AT THE [facility] THIS AFTERNOON. CM WENT TO THE ROOM. SPOKE WITH THE PATIENT. TOLD HIM I HAD SPOKEN WITH THE DAUGHTER AND RELAYED THE DAUGHTER'S MESSAGE. HE SAYS "OKAY" PAMELA ADVISED THE PRIMARY NURSE. DCP- Discharge Planning Updated by [id number]: Leslee Anguiano on 03/19/19 7:[address] RAJAT SENT OFF DCP- Discharge Planning Updated by [email or web address]: Asia Patel on 03/16/19 6:[address] CM received a call back from [employer] that patient will require a RAJAT prior to discharge to SNF. CM will continue to follow and assist as needed with discharge planning / needs. DCP- Discharge Planning Updated by [id number]: Asia Patel on 03/16/19 1:[address] CM spoke with Daughter Tiffanie Jean Baptiste she stated that she was interested in The [facility] for skilled and possible LTC. SAQIB signed for The [facility]. CM spoke with Luc Fuentes and faxed records. CM explained to Luc that daughter stated that patient was drafted to [place] but was released d/t inability to read and write. Luc stated that they would check to see if patient qualifies for VA benefits. CM awaiting determination from The [facility]. CM will continue to follow and assist as needed with discharge planning / needs. DCP- Discharge Planning Updated by [id number]: Skyla Mclaughlin on 03/13/19 11:[address] Presents to ER w/daughter, Tiffanie Mckinley #[phone]. Patient lives w/daughter and S-I-L, Angel Mckinley #[phone]. Patient recently moved from [place] to his daughter's home in [facility]. Daughter states the patient sees an FILM COATER with [facility] she/he would not re-prescribe patients Ativan (long-time use) and he got kicked out of the office. Daughter states the patient has had numerous, increasing falls and over the past 2 days has become total care. States patient has dementia. Daughter states "I just can't take care of him anymore." Patient is incontinent of urine. Daughter is tearful. Daughter has POA of finances, only. Request NH PLACEMENT. Daughter states patient was in the during the [place], but was discharged because patient could not read nor write. Patient may possibly have VA benefits, but has not been seen at the VA. Provided daughter with a list of Nursing facility's and she states she would like for patient to go into a Skilled facility and eventually wants long-term placement. PCP: None. Pharmacy: [facility] next to [address]. DME: showerchair, Walker, back brace. CM will assist as needed with dc needs. DCPIA - Discharge Planning Initial Assessment Updated by [email or web address]: Skyla Mclaughlin on 03/14/19 5:37 pm * Is the patient Alert and Oriented? No * How many steps to enter\\exit or inside your home? Na * PCP None Was seeing an FILM COATER @[facility], but no longer. * [facility]acy [facility], next to [address] * Preadmission Environment Home with Family * ADLs Total Dependent * Equipment Rolling Walker Shower Chair * Other Equipment Back brace * List name and contact numbers for known caregivers / representatives who currently or will assist patient after discharge: Tiffanie Elías (dtr) #[phone]. Angel Mckinley (s-i-l) #[phone]. * Verbal permission to speak to the caregivers and representatives has been obtained from the patient. N/A * Community resources currently utilized None * Please name any agencies selected above. None at this time. Provided dtr with a list of Nsg/Rehab to choose from. Daughter states patient may have A benefits, but has not registered with [facility] * Additional services required to return to the preadmission environment? Yes * Can the patient safely return to the preadmission environment? No * Has this patient been hospitalized within the prior 30 days at any hospital? No Coverage Notice Reviewer: [id number] Bindu Patel Notice Issued Date-Time: 03/16/2019 12:00 Notice Type: Patient Choice Letter Notice Delivered To: Family Member Relationship to Patient: Daughter Financial Advocate Name: Tiffanie Jean Baptiste Delivery Method: HAND - Hand Delivered Astrid Days: Prior Verbal Notification: Recipient Understood Notice: Yes Recipient Signature: Yes Med Rec Note Co-signed by Attending: Coverage Notice Comment: Last DP export: 03/19/19 11:30 a Patient Name: ERICK HERNANDEZ Page [phone] at 1252 All edits/amendments must be made on the electronic document DICTATION DATE: 03/19/19 1251 DIRECTOR GEOTHERMAL OPERATIONS: MG 03/19/19 1251 RPT#: [id number] DC DATE: STATUS: ADM IN [facility] [address] [place] [address] END OF REPORT
--- NOTE | 2019-03-19 14:06 | NUR ---
OT NOTE: PT COMPLETED SUPINE TO SIT WITH SBA. PT COMPLETED SIDE STEPPING WITH CGA. PT COMPLETED BUE AROM AXS AT EOB WITH SPV. PT DOING WELL AND NO C/O PAIN. THANK YOU, TELLO PARRA
--- NOTE | 2019-03-19 16:16 | NUR ---
PT DISCHARGED TO [facility] VIA WHEELCHAIR WITH [facility] STAFF. REPORT CALLED TO BINDU SMITH.
--- NOTE | 2019-03-19 19:30 | MORECARE ---
CASE MANAGEMENT DISCHARGE SUMMARY PATIENT: ERICK HERNANDEZ UNIT: [id number] ADM DATE: 03/13/19 AGE: 83 : 34 SEX: M ROOM/BED: D.1211 AUTHOR: WILLIAM KURTZ PHYSICIAN: REFERRING PHYSICIAN: NATASHA DODD MD DATE OF SERVICE: 03/19/19 Discharge Plan Patient Name: ERICK HERNANDEZ Facility: [facility]:[place] : 1935 Planned Disposition: Intermediate Facility Anticipated Discharge Date: 03/19/19 Discharge Date: 03/19/2019 Expected LOS: 6 Initial Reviewer: [id number] Initial Review Date: 03/13/2019 Generated: 03/19/19 8:30 pm Comments DCP- Discharge Planning Updated by [id number]: Melita Cabrera on 03/19/19 6:[address] PATIENT WAS DISCHARGED TO A SKILLED BED AT [facility]. DCP- Discharge Planning Updated by [id number]: Melita Cabrera on 03/19/19 11:[address] 0830 PAMELA NOTIFIED BY PAMELA MOSLEY, THAT THE RAJAT HAS BEEN RECEIVED. PLAN FOR DISCHARGE TO DAY. 1045 TC TO THE [facility]. PAMELA SPOKE WITH WALDEMAR PERSAUD AT [phone]. PRIMARY NURSE TO CALL REPORT. PLAN FOR TRANSPORTATION PICKUP AT 1600. PAMELA NATARAJAN, WILL FORWARD RAJAT RESPONSE TO [facility]. 1210 THE PATIENT'S DAUGHTER, MS JEAN BAPTISTE CALLED. SHE STATES SHE THOUGHT THE PATIENT WAS GOING TO ACUTE REHAB FROM CONVERSATION SHE HAD YESTERDAY. PAMELA REVIEWED ALL CASE MANAGEMENT'S NOTES. PAMELA REVIEWED OT/PT NOTES. PAMELA REVIEWED ACUTE REHAB ASSESSMENT. THE DAUGHTERS STATES SHE UNDERSTANDS WHY HE IS GOING TO SKILLED REHAB. SHE IS IN AGREEMENT WITH THE PLAN. SHE ASK THAT CM TELL HER FATHER THAT SHE WILL SEE HIM AT THE [facility] THIS AFTERNOON. CM WENT TO THE ROOM. SPOKE WITH THE PATIENT. TOLD HIM I HAD SPOKEN WITH THE DAUGHTER AND RELAYED THE DAUGHTER'S MESSAGE. HE SAYS "OKAY" CM ADVISED THE PRIMARY NURSE. DCP- Discharge Planning Updated by [id number]: Leslee Anguiano on 03/19/19 7:[address] RAJAT SENT OFF DCP- Discharge Planning Updated by [id number]: Asia Patel on 03/16/19 6:[address] CM received a call back from Luc Fuentes that patient will require a RAJAT prior to discharge to SNF. CM will continue to follow and assist as needed with discharge planning / needs. DCP- Discharge Planning Updated by [id number]: Asia Patel on 03/16/19 1:[address] CM spoke with Daughter Tiffanie Jean Baptiste she stated that she was interested in The [facility] for skilled and possible LTC. SAQIB signed for The [facility]. CM spoke with Luc Fuentes and faxed records. CM explained to Luc that daughter stated that patient was drafted to [place] but was released d/t inability to read and write. Luc stated that they would check to see if patient qualifies for VA benefits. CM awaiting determination from The [facility]. CM will continue to follow and assist as needed with discharge planning / needs. DCP- Discharge Planning Updated by [id number]: Skyla Mclaughlin on 03/13/19 11:[address] Presents to ER w/daughter, Tiffanie Mckinley #[phone]. Patient lives w/daughter and S-I-L, Angel Mckinley #[phone]. Patient recently moved from [place] to his daughter's home in [facility]. Daughter states the patient sees an AGRICULTURAL PURCHASING AGENT with [facility] she/he would not re-prescribe patients Ativan (long-time use) and he got kicked out of the office. Daughter states the patient has had numerous, increasing falls and over the past 2 days has become total care. States patient has dementia. Daughter states "I just can't take care of him anymore." Patient is incontinent of urine. Daughter is tearful. Daughter has POA of finances, only. Request NH PLACEMENT. Daughter states patient was in the during the [place], but was discharged because patient could not read nor write. Patient may possibly have VA benefits, but has not been seen at the VA. Provided daughter with a list of Nursing facility's and she states she would like for patient to go into a Skilled facility and eventually wants long-term placement. PCP: None. Pharmacy: [facility] next to [address]. DME: showerchair, Walker, back brace. CM will assist as needed with dc needs. DCPIA - Discharge Planning Initial Assessment Updated by [email or web address]: Skyla Mclaughlin on 03/14/19 5:37 pm * Is the patient Alert and Oriented? No * How many steps to enter\\exit or inside your home? Na * PCP None Was seeing an AGRICULTURAL PURCHASING AGENT @[facility], but no longer. * Pharmacy [facility], next to [address] * Preadmission Environment Home with Family * ADLs Total Dependent * Equipment Rolling Walker Shower Chair * Other Equipment Back brace * List name and contact numbers for known caregivers / representatives who currently or will assist patient after discharge: Tiffanie Mckinley (dtr) #[phone]. Angel Mckinley (s-i-l) #[phone]. * Verbal permission to speak to the caregivers and representatives has been obtained from the patient. N/A * Community resources currently utilized None * Please name any agencies selected above. None at this time. Provided dtr with a list of Nsg/Rehab to choose from. Daughter states patient may have A benefits, but has not registered with [facility] * Additional services required to return to the preadmission environment? Yes * Can the patient safely return to the preadmission environment? No * Has this patient been hospitalized within the prior 30 days at any hospital? No Coverage Notice Reviewer: [id number] - Asia Patel Notice Issued Date-Time: 03/16/2019 12:00 Notice Type: Patient Choice Letter Notice Delivered To: Family Member Relationship to Patient: Daughter Equine Intern Name: Tiffanie Jean Baptiste Delivery Method: HAND - Hand Delivered Astrid Days: Prior Verbal Notification: Recipient Understood Notice: Yes Recipient Signature: Yes Med Rec Note Co-signed by Attending: Coverage Notice Comment: Last DP export: 03/19/19 11:52 a Patient Name: ERICK HERNANDEZ Page 13972 at 1930 All edits/amendments must be made on the electronic document DICTATION DATE: 03/19/191929 LIEUTENANT SHIFT SUPERVISOR: MG 03/19/191929 RPT#: [id number] DC DATE:03/19/19 STATUS: DIS IN [facility] [address] [place] [address] END OF REPORT
--- NOTE | 2019-03-22 08:57 | MORECARE ---
CASE MANAGEMENT DISCHARGE SUMMARY PATIENT: ERICK HERNANDEZ UNIT: [id number] ADM DATE: 03/13/19 AGE: 83 : 34 SEX: M ROOM/BED: D.1211 AUTHOR: WILLIAM KURTZ PHYSICIAN: REFERRING PHYSICIAN: NATASHA DODD MD DATE OF SERVICE: 03/22/19 Discharge Plan Patient Name: ERICK HERNANDEZ Facility: [facility]:[place] : 1935 Planned Disposition: Long-Term Facility Anticipated Discharge Date: 03/19/19 Discharge Date: 03/19/2019 Expected LOS: 6 Initial Reviewer: [id number] Initial Review Date: 03/13/2019 Generated: 03/22/19 9:57 am Comments DCP- Discharge Planning Updated by [id number]: Melita Cabrera on 03/19/19 6:[address] PATIENT WAS DISCHARGED TO A SKILLED BED AT [facility]. DCP- Discharge Planning Updated by [id number]: Melita Cabrera on 03/19/19 11:[address] 0830 PAMELA NOTIFIED BY PAMELA MOSLEY, THAT THE RAJAT HAS BEEN RECEIVED. PLAN FOR DISCHARGE TO DAY. 1045 TC TO THE [facility]. PAMELA SPOKE WITH WALDEMAR PERSAUD AT [phone]. PRIMARY NURSE TO CALL REPORT. PLAN FOR TRANSPORTATION PICKUP AT 1600. PAMELA NATARAJAN, WILL FORWARD RAJAT RESPONSE TO [facility]. 1210 THE PATIENT'S DAUGHTER, MS JEAN BAPTISTE CALLED. SHE STATES SHE THOUGHT THE PATIENT WAS GOING TO ACUTE REHAB FROM CONVERSATION SHE HAD YESTERDAY. PAMELA REVIEWED ALL CASE MANAGEMENT'S NOTES. PAMELA REVIEWED OT/PT NOTES. PAMELA REVIEWED ACUTE REHAB ASSESSMENT. THE DAUGHTERS STATES SHE UNDERSTANDS WHY HE IS GOING TO SKILLED REHAB. SHE IS IN AGREEMENT WITH THE PLAN. SHE ASK THAT CM TELL HER FATHER THAT SHE WILL SEE HIM AT THE [facility] THIS AFTERNOON. CM WENT TO THE ROOM. SPOKE WITH THE PATIENT. TOLD HIM I HAD SPOKEN WITH THE DAUGHTER AND RELAYED THE DAUGHTER'S MESSAGE. HE SAYS "OKAY" CM ADVISED THE PRIMARY NURSE. DCP- Discharge Planning Updated by [id number]: Leslee Anguiano on 03/19/19 7:[address] RAJAT SENT OFF DCP- Discharge Planning Updated by [id number]: Asia Patel on 03/16/19 6:[address] CM received a call back from Luc Fuentes that patient will require a RAJAT prior to discharge to SNF. CM will continue to follow and assist as needed with discharge planning / needs. DCP- Discharge Planning Updated by [id number]: Asia Patel on 03/16/19 1:[address] CM spoke with Daughter Tiffanie Jean Baptiste she stated that she was interested in The [facility] for skilled and possible LTC. SAQIB signed for The [facility]. CM spoke with Luc Fuentes and faxed records. CM explained to Luc that daughter stated that patient was drafted to [place] but was released d/t inability to read and write. Luc stated that they would check to see if patient qualifies for VA benefits. CM awaiting determination from The [facility]. CM will continue to follow and assist as needed with discharge planning / needs. DCP- Discharge Planning Updated by [id number]: Sklya Mclaughlin on 03/13/19 11:[address] Presents to ER w/daughter, Tiffanie Mckinley #[phone]. Patient lives w/daughter and S-I-L, Angel Mckinley #[phone]. Patient recently moved from [place] to his daughter's home in [facility]. Daughter states the patient sees an CHEMISTRY INTERN with [facility] she/he would not re-prescribe patients Ativan (long-time use) and he got kicked out of the office. Daughter states the patient has had numerous, increasing falls and over the past 2 days has become total care. States patient has dementia. Daughter states "I just can't take care of him anymore." Patient is incontinent of urine. Daughter is tearful. Daughter has POA of finances, only. Request NH PLACEMENT. Daughter states patient was in the during the [place], but was discharged because patient could not read nor write. Patient may possibly have VA benefits, but has not been seen at the VA. Provided daughter with a list of Nursing facility's and she states she would like for patient to go into a Skilled facility and eventually wants long-term placement. PCP: None. Pharmacy: [facility] next to [address]. DME: showerchair, Walker, back brace. CM will assist as needed with dc needs. DCPIA - Discharge Planning Initial Assessment Updated by [id number]: Skyla Mclaughlin on 03/14/19 5:37 pm * Is the patient Alert and Oriented? No * How many steps to enter\\exit or inside your home? Na * PCP None Was seeing an CHEMISTRY INTERN @[facility], but no longer. * [facility]acy [facility], [facility] to [address] * Preadmission Environment Home with Family * ADLs Total Dependent * Equipment Rolling Walker Shower Chair * Other Equipment Back brace * List name and contact numbers for known caregivers / representatives who currently or will assist patient after discharge: Tiffanie Mckinley (dtr) #[phone]. Angel Mckinley (s-i-l) #[phone]. * Verbal permission to speak to the caregivers and representatives has been obtained from the patient. N/A * Community resources currently utilized None * Please name any agencies selected above. None at this time. Provided dtr with a list of Nsg/Rehab to choose from. Daughter states patient may have A benefits, but has not registered with [facility] * Additional services required to return to the preadmission environment? Yes * Can the patient safely return to the preadmission environment? No * Has this patient been hospitalized within the prior 30 days at any hospital? No Coverage Notice Reviewer: [id number] Bindu Patel Notice Issued Date-Time: 03/16/2019 12:00 Notice Type: Patient Choice Letter Notice Delivered To: Family Member Relationship to Patient: Daughter Guitar Repair Technician Name: Tiffanie Jean Baptiste Delivery Method: HAND - Hand Delivered Astrid Days: Prior Verbal Notification: Recipient Understood Notice: Yes Recipient Signature: Yes Med Rec Note Co-signed by Attending: Coverage Notice Comment: Reviewer: [id number] Bindu Cabrera Notice Issued Date-Time: 03/19/2019 16:00 Notice Type: IM Discharge Notice Notice Delivered To: Patient Relationship to Patient: Self Guitar Repair Technician Name: Delivery Method: HAND - Hand Delivered Astrid Days: Prior Verbal Notification: Recipient Understood Notice: Yes Recipient Signature: Yes Med Rec Note Co-signed by Attending: Coverage Notice Comment: DISCHARGE IMM SERVED. SIGNED COPY TO THE CHART. SIGNED COPY TO THE PATIENT. Last DP export: 03/19/19 6:31 p Patient Name: ERICK HERNANDEZ Page 75984 at 0857 All edits/amendments must be made on the electronic document DICTATION DATE: 03/22/19855 OUTSIDE MACHINIST HELPER: MG 03/22/1957 RPT#: [id number] DC DATE:03/19/19 STATUS: DIS IN [facility] [address] [place] [address] END OF REPORT
== END 2019-03-19 16:16 | DRG 689 ==
LOC: D.ER 09:14 → D.M3 13:30
PROVIDERS: Emergency Medicine; Internal Medicine; Internal Medicine Nephrology; ADMIT Emergency Medicine; ATTEND Emergency Medicine
DX: N39.0 Urinary tract infection, site not specified (principal); G92 Toxic encephalopathy; E43 Unspecified severe protein-calorie malnutrition; E87.1 Hypo-osmolality and hyponatremia; D64.9 Anemia, unspecified; I48.91 Unspecified atrial fibrillation; I10 Essential (primary) hypertension; F03.90 Unspecified dementia, unspecified severity, without behavioral disturbance, psychotic disturbance, mood disturbance, and anxiety; E03.9 Hypothyroidism, unspecified; Z68.20 Body mass index [BMI] 20.0-20.9, adult

== ENCOUNTER 2019-05-13 04:10 | Emergency (ER) | payer MEDICARE, BC ==
[~2019-05-13] VITALS: Ht 162.6 cm; Wt 59.1 kg
[~2019-05-13 04:10] MED LIST: LIPITOR20 MG PO; LOPRESSOR25 MG PO; NEXIUM40 MG PO; PACERONE100 MG; PACERONE100 MG PO; PROPECIA1 MG PO; SINGULAIR 4 MG C4 MG PO; TIMOPTIC 0.5 % O5 ML RIGHT EYE; TIROSINT88 MCG PO; TRUSOPT 2 % OPT10 ML RIGHT EYE; ULTRAM50 MG PO; UROXATRAL10 MG PO; XALATAN 0.0052.5 ML LEFT EYE; XARELTO10 MG PO
[2019-05-13 04:22] VITALS: Ht 162.6 cm; Wt 59.1 kg
[2019-05-13 05:09] LABS: UDS - AMPHET NEGATIVE QUAL (NEGATIVE); UDS - BARB NEGATIVE QUAL (NEGATIVE); UDS - BENZO NEGATIVE QUAL (NEGATIVE); UDS - COCAINE NEGATIVE QUAL (NEGATIVE); UDS - OPIATE NEGATIVE QUAL (NEGATIVE); UDS - PCP NEGATIVE QUAL (NEGATIVE); UDS - THC NEGATIVE QUAL (NEGATIVE)
[2019-05-13 05:10] LABS: BASOPHILS 0.2 % (0-2); EOSINOPHILS 0.8 % (0-7); HEMATOCRIT 39.6 % (42.0-54.0); HEMOGLOBIN 13.5 g/dL (13.5-17.5); IMMATURE GRANULOCYTES 0.2 % (0-5); LYMPHOCYTES 19.5 % (15-50); MCH 32.7 pg (26.0-34.0); MCHC 34.1 g/dL (31.0-37.0); MCV 95.9 fL (80.0-100.0); MEAN PLATELET VOLUME 11.1 fL (7.4-10.4); MONOCYTES 10.8 % (2-11); NEUTROPHILS 68.5 % (40-80); PLATELET COUNT 303 10x3/uL (130-400); RBC 4.13 10x6/uL (4.20-6.10); RDW 12.8 % (11.5-14.5); WBC 9.7 10x3/uL (4.8-10.8)
[2019-05-13 05:19] LABS: APPEARANCE CLEAR (CLEAR); BILIRUBIN NEGATIVE (NEGATIVE); COLOR YELLOW (YELLOW); GLUCOSE NEGATIVE (NEGATIVE); KETONE NEGATIVE (NEGATIVE); NITRITE NEGATIVE (NEGATIVE); PROTEIN 1+ mg/dL (NEGATIVE); UROBILINOGEN NORMAL (NORMAL)
[2019-05-13 05:21] LABS: BACTERIA NONE SEEN /hpf (NEGATIVE); EPITHELIAL CELLS 0-5 /hpf (0-5); WHITE CELLS - URINE 0-5 /hpf (NEGATIVE)
[2019-05-13 05:23] LABS: ALBUMIN 3.5 g/dL (3.4-5.0); ALKALINE PHOSPHATASE 79 U/L (46-116); ALT (SGPT) 13 U/L (10-68); CALC OSMOLALITY 283 mosm/kg (275-300); CARBON DIOXIDE 31.4 mmol/L (21.0-32.0); CHLORIDE - SERUM 103 mmol/L (98-107); CREATININE - SERUM 0.9 mg/dL (0.6-1.3); GLUCOSE 98 mg/dL (74-106); MAGNESIUM - SERUM 1.7 mg/dL (1.8-2.4); POTASSIUM - SERUM 5.2 mmol/L (3.5-5.1); PROTEIN - SERUM 7.2 g/dL (6.4-8.2); SODIUM 141 mmol/L (136-145); UREA NITROGEN 20 mg/dL (7-18); eGFR NON AFRICAN AMERICAN 85 mL/min (90-120)
[2019-05-13 07:05] VITALS: BP 203/101
== END 2019-05-13 07:05 ==
LOC: D.ER 04:10
PROVIDERS: Family Medicine
DX: R33.9 Retention of urine, unspecified (principal); I10 Essential (primary) hypertension; W22.01XA Walked into wall, initial encounter; R41.0 Disorientation, unspecified

== ENCOUNTER 2019-05-29 23:11 | Inpatient (IN) | payer MEDICARE, BC ==
[~2019-05-29] VITALS: Ht 162.6 cm; Wt 55.3 kg
[2019-05-29 23:44] LABS: BASOPHILS 0.1 % (0-2); EOSINOPHILS 0.9 % (0-7); HEMOGLOBIN 12.4 g/dL (13.5-17.5); IMMATURE GRANULOCYTES 0.4 % (0-5); LYMPHOCYTES 14.9 % (15-50); MCHC 33.5 g/dL (31.0-37.0); MCV 95.6 fL (80.0-100.0); MEAN PLATELET VOLUME 10.2 fL (7.4-10.4); MONOCYTES 8.9 % (2-11); NEUTROPHILS 74.8 % (40-80); PLATELET COUNT 319 10x3/uL (130-400); RBC 3.87 10x6/uL (4.20-6.10); RDW 12.4 % (11.5-14.5); WBC 13.7 10x3/uL (4.8-10.8)
[2019-05-29 23:56] LABS: APTT 44.7 SECONDS (22.8-39.4); CALC OSMOLALITY 278 mosm/kg (275-300); CALCIUM 9.2 mg/dL (8.5-10.1); CARBON DIOXIDE 31.4 mmol/L (21.0-32.0); CHLORIDE - SERUM 97 mmol/L (98-107); CREATININE - SERUM 1.2 mg/dL (0.6-1.3); GLUCOSE 126 mg/dL (74-106); INR 1.41 (0.85-1.17); POTASSIUM - SERUM 4.2 mmol/L (3.5-5.1); PROTIME 16.7 SECONDS (11.6-15.0); SODIUM 135 mmol/L (136-145); UREA NITROGEN 31 mg/dL (7-18); eGFR NON AFRICAN AMERICAN 61 mL/min (90-120)
[2019-05-30] VITALS (7 sets, daily range): BP systolic 92–137; BP diastolic 48–87; BMI 21.0
[2019-05-30 00:16] LABS: ALBUMIN 3.4 g/dL (3.4-5.0); ALKALINE PHOSPHATASE 76 U/L (46-116); ALT (SGPT) 21 U/L (10-68); BILIRUBIN - TOTAL 0.42 mg/dL (0.2-1.3); CKMB 1.4 U/L (0.0-3.6); CREATINE KINASE 228 UL (21-232); PRO BNP 710 pg/mL (0-450); PROTEIN - SERUM 6.7 g/dL (6.4-8.2); TROPONIN-I < 0.017 ng/mL (0.000-0.060)
--- NOTE | 2019-05-30 00:30 | NUR ---
PATIENT TO FLOOR VIA ER WITH LEFT WRIST IV. RECONNECTED FLUIDS AND NS @ 75 ADMINISTERED PER ORDER. LEFT ELBOW SKIN TEAR. AUDI ALARM IN PLACE.
[2019-05-30 01:04] LABS: THYROID STIMULATING HORMONE 2.43 uIU/mL (0.36-3.74)
--- NOTE | 2019-05-30 01:43 | NUR ---
CALL TO [facility] AND SPOKE WITH BRAYAN TO GO OVER MEDICATIONS FOR PATIENT INCLUDING LAST DOSE AND PHARMACY.
--- NOTE | 2019-05-30 07:33 | NUR ---
PT RESTING IN BED. NO SIGNS OF DISTRESS. IV TO LEFT WRIST PATENT NO REDNESS OR TENDERNESS. ON TELEMETRY 84 SR. COMPLAINS OF PAIN. MEDICATIONS GIVEN. DENIES ANY FURTHER NEED AT THIS TIME. CALL LIGHT IN REACH. BED LOW POSITION. NO FAMILY AT BEDSIDE AT THIS TIME.
--- NOTE | 2019-05-30 14:48 | NUR ---
I have reviewed this patient and I concur with the Shift Assessment completed by the Licensed Practical Nurse today this shift.
--- NOTE | 2019-05-30 15:49 | NUR ---
MEET ANESTHESIA DISCHARGE CRITERIA
--- NOTE | 2019-05-30 19:17 | NUR ---
PATIENT RESTING IN BED WITH GUESTS AT BEDSIDE AND NO S/S OF DISTRESS. PATIENT DENIES NEEDS AT THIS TIME. BED IN LOWEST POSITION, CALL LIGHT WITHIN REACH, AND BED ALARM ON. ENCOURAGED THE PATIENT TO CALL IF HE HAS NEEDS. WILL CONTINUE TO MONITOR.
--- NOTE | 2019-05-30 22:33 | NUR ---
PAGED DR. LIMA
--- NOTE | 2019-05-30 22:36 | NUR ---
SPOKE WITH DR. LIMA AND NOTIFIED HIM THAT THE PATIENT WAS BECOMING INCREASINGLY AGITATED, THE PATIENT HAD PULLED OFF HIS DRESSING, AND PULLED A STAPLE OUT. I ALSO NOTIFIED DR. LIMA THAT THE PATIENT HAD NOT VOIDED POSTOP. DR. LIMA STATED TO STERI-STRIP THE PATIENT'S INCISION AND APPLY A NEW DRESSING. HE ALSO ORDERED AN IN AND OUT CATH IF NEEDED. DR. LIMA STATED TO CALL THE MEDICAL DOCTOR IN REGARDS TO MEDICATION FOR THE PATIENT'S INCREASING AGITATION.
--- NOTE | 2019-05-30 22:37 | NUR ---
PAGEEnrico ARNOLD, DIRECTOR OF STRATEGIC ALLIANCES FOR DR. DIEHL, IN REGARDS TO PATIENT'S INCREASING AGITATION.
--- NOTE | 2019-05-30 22:40 | NUR ---
CATALINA RETURNED PAGE AND STATED TO GIVE THE PATIENT 1MG ATIVAN IV Q4HP
--- NOTE | 2019-05-30 22:49 | NUR ---
ADMINISTERED ATIVAN PER ORDERS. CLEANED PATIENT'S INCISION, APPLIED STERI-STRIPS, AND CLEAN DRESSINGS. PATIENT ALSO HAD INCONTINENT EPISODE. CLEANED PATIENT UP WITH WELLNESS COORDINATOR AND CHANGED ALL LINENS. BED IN LOWEST POSITION, CALL LIGHT WITHIN REACH, AND BED ALARM ON. PATIENT DENIES OTHER NEEDS AT THIS TIME. WILL CONTINUE TO MONITOR.
--- NOTE | 2019-05-30 23:30 | NUR ---
PATIENT RESTING IN BED WITH EYES CLOSED AND NO S/S OF DISTRESS. WILL CONTINUE TO MONITOR.
[2019-05-31 00:17] VITALS: BP 120/70
--- NOTE | 2019-05-31 01:24 | NUR ---
PATIENT RESTING IN BED WITH EYES CLOSED AND NO S/S OF DISTRESS. WILL CONTINUE TO MONITOR.
--- NOTE | 2019-05-31 02:55 | NUR ---
PATIENT AGITATED AT THIS TIME. PATIENT PULLED OUT IV AND PULLED DRESSING AND STERI-STRIPS OF OF LEFT HIP INCISION. I CLEANED THE PATIENT'S INCISION. APPLIED NEW STERI-STRIPS AND DRESSINGS, RESITED THE PATIENT'S IV TO HIS LEFT FA ON THE SECOND ATTEMPT, AND ADMINISTERED ATIVAN FOR ANXIETY. DIABETES TRAINER'S CLEANED THE PATIENT UP AND CHANGED HIS LINENS. PATIENT RESTING IN BED WITH EYES CLOSED AND NO S/S OF DISTRESS. BED IN LOWEST POSITION, CALL LIGHT WITHIN REACH, AND BED ALARM ON. WILL CONTINUE TO MONITOR.
[2019-05-31 04:47] VITALS: BP 110/70
[2019-05-31 05:47] LABS: BASOPHILS 0 % (0-2); EOSINOPHILS 0 % (0-7); HEMATOCRIT 31.8 % (42.0-54.0); HEMOGLOBIN 10.4 g/dL (13.5-17.5); IMMATURE GRANULOCYTES 0.2 % (0-5); LYMPHOCYTES 4.1 % (15-50); MCH 31.9 pg (26.0-34.0); MCHC 32.7 g/dL (31.0-37.0); MCV 97.5 fL (80.0-100.0); MEAN PLATELET VOLUME 10.8 fL (7.4-10.4); MONOCYTES 12.7 % (2-11); RBC 3.26 10x6/uL (4.20-6.10); RDW 12.6 % (11.5-14.5); WBC 12.9 10x3/uL (4.8-10.8)
[2019-05-31 06:05] LABS: CALCIUM 8.3 mg/dL (8.5-10.1); CARBON DIOXIDE 28.8 mmol/L (21.0-32.0); CHLORIDE - SERUM 102 mmol/L (98-107); GLUCOSE 108 mg/dL (74-106); POTASSIUM - SERUM 4.4 mmol/L (3.5-5.1); SODIUM 137 mmol/L (136-145)
[2019-05-31 06:10] LABS: CALC OSMOLALITY 276 mosm/kg (275-300); CREATININE - SERUM 0.8 mg/dL (0.6-1.3); UREA NITROGEN 18 mg/dL (7-18); eGFR NON AFRICAN AMERICAN > 90 mL/min (90-120)
[2019-05-31 06:14] LABS: PLATELET COUNT 234 10x3/uL (130-400)
--- NOTE | 2019-05-31 07:21 | NUR ---
PT RESTING IN BED. NO SIGNS OF DISTRESS. IV TO LEFT FORARM PATENT NO REDNESS OR TENDERNESS. HAS INCISION TO LEFT HIP. DRESSING INTACT. ON TELEMETRY 75 SR. DENIES ANY FURTHER NEED AT THIS TIME. CALL LIGHT IN REACH. BED LOW POSITION. NO FAMILY AT BEDSIDE. ALL FALL PRECAUTIONS IN PLACE.
[2019-05-31 07:56] VITALS: BP 164/85
[2019-05-31 11:43] VITALS: BP 147/74
--- NOTE | 2019-05-31 12:33 | MORECARE ---
CASE MANAGEMENT DISCHARGE SUMMARY PATIENT: ERICK HERNANDEZ UNIT: [id number] ADM DATE: 05/30/19 AGE: 84 : 34 SEX: M ROOM/BED: D.2225 AUTHOR: WILLIAM KURTZ PHYSICIAN: REFERRING PHYSICIAN: IGOR DIEHL MD DATE OF SERVICE: 05/31/19 Discharge Plan Patient Name: ERICK HERNANDEZ Facility: [facility]:[place] : 1935 Planned Disposition: Inpatient Rehab Anticipated Discharge Date: Discharge Date: Expected LOS: Initial Reviewer: [email or web address] Initial Review Date: 05/31/2019 Generated: 05/31/19 1:33 pm DCPIA - Discharge Planning Initial Assessment Updated by [email or web address]: Jasmin Davis on 05/31/19 12:32 pm * How many steps to enter\exit or inside your home? 0/0 * Preadmission Environment Accessibility L[facility] * Facility Name [facility] * ADLs Total Dependent * Other Equipment All equipment provided by [facility] * List name and contact numbers for known caregivers / representatives who currently or will assist patient after discharge: Nila Corralington [facility] - [phone] * Verbal permission to speak to the caregivers and representatives has been obtained from the patient. Yes * Community resources currently utilized None * Additional services required to return to the preadmission environment? No * Can the patient safely return to the preadmission environment? Yes * Has this patient been hospitalized within the prior 30 days at any hospital? No Patient Name: ERICK HERNANDEZ Page [id number] at 1233 All edits/amendments must be made on the electronic document DICTATION DATE: 05/31/19 1233 STAFF CLIMATE SCIENTIST: MG 05/31/19 1233 RPT#: [id number] DC DATE: STATUS: ADM IN [facility] [address] [place] [address] END OF REPORT
--- NOTE | 2019-05-31 12:42 | MORECARE ---
CASE MANAGEMENT DISCHARGE SUMMARY PATIENT: ERICK HERNANDEZ UNIT: [id number] ADM DATE: 05/30/19 AGE: 84 : 34 SEX: M ROOM/BED: D.2225 AUTHOR: WILLIAM KURTZ PHYSICIAN: REFERRING PHYSICIAN: IGOR DIEHL MD DATE OF SERVICE: 05/31/19 Discharge Plan Patient Name: ERICK HERNANDEZ Facility: [facility]:[place] : 1935 Planned Disposition: Inpatient Rehab Anticipated Discharge Date: Discharge Date: Expected LOS: Initial Reviewer: [email or web address] Initial Review Date: 05/31/2019 Generated: 05/31/19 1:42 pm Comments DCP- Discharge Planning Updated by [id number]: Jasmin Davis on 05/31/19 11:[address] Patient Name: ERICK HERNANDEZ Admission Status: ER Accout number: [id number] Admission Date: 05-30-2019 : 1935 Admission Diagnosis: Attending: IGOR DIEHL Current LOS: 1 Anticipated DC Date: Planned Disposition: Inpatient Rehab Primary Insurance: MEDICARE A & B Discharge Planning Comments: CM met with patient's daughter per her request. She states that her father has lived at [facility] in exterminator termite care since April. She states that she would like to see him get inpatient rehab here at [facility] prior to returning to [facility]. I informed her that he would need to participate in 3 hours of therapy a day to be a candidate for inpatient rehab. She would like a referral. 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 CM will continue to follow and assist with discharge planning/needs. Grain Picker: Jasmin Davis DCPIA - Discharge Planning Initial Assessment Updated by [id number]: Jasmin Davis on 05/31/19 12:32 pm * How many steps to enter\exit or inside your home? 0/0 * Preadmission Environment Nursing Home Long Term * Facility Name [facility] * ADLs Total Dependent * Other Equipment All equipment provided by [facility] * List name and contact numbers for known caregivers / representatives who currently or will assist patient after discharge: Nila Mckinley - DTR - [phone] * Verbal permission to speak to the caregivers and representatives has been obtained from the patient. Yes * Community resources currently utilized None * Additional services required to return to the preadmission environment? No * Can the patient safely return to the preadmission environment? Yes * Has this patient been hospitalized within the prior 30 days at any hospital? No Coverage Notice Reviewer: [id number] Bindu Davis Notice Issued Date-Time: 05/31/2019 12:36 Notice Type: Patient Choice Letter Notice Delivered To: Family Member Relationship to Patient: Daughter Treasury Director Name: Nila Mckinley Delivery Method: HAND - Hand Delivered Astrid Days: Prior Verbal Notification: Recipient Understood Notice: Yes Recipient Signature: Yes Med Rec Note Co-signed by Attending: Coverage Notice Comment: SAQIB for [facility] Last DP export: 05/31/19 11:33 Patient Name: ERICK HERNANDEZ Page [id number] at 1242 All edits/amendments must be made on the electronic document DICTATION DATE: 05/31/19 1241 LAND ECONOMIST: MG 05/31/19 1241 RPT#: [id number] DC DATE: STATUS: ADM IN [facility] [address] [place] [address] END OF REPORT
[2019-05-31 12:51] VITALS: Ht 162.6 cm; Wt 55.3 kg
--- NOTE | 2019-05-31 16:27 | MORECARE ---
CASE MANAGEMENT DISCHARGE SUMMARY PATIENT: ERICK HERNANDEZ UNIT: [id number] ADM DATE: 05/30/19 AGE: 84 : 34 SEX: M ROOM/BED: D.2225 AUTHOR: WILLIAM KURTZ PHYSICIAN: REFERRING PHYSICIAN: IGOR DIEHL MD DATE OF SERVICE: 05/31/19 Discharge Plan Patient Name: ERICK HERNANDEZ Facility: [facility]:[place] : 1935 Planned Disposition: Inpatient Rehab Anticipated Discharge Date: Discharge Date: Expected LOS: Initial Reviewer: [email or web address] Initial Review Date: 05/31/2019 Generated: 05/31/19 5:27 pm Comments DCP- Discharge Planning Updated by [id number]: Jasmin Davis on 05/31/19 11:[address] Patient Name: ERICK HERNANDEZ Admission Status: ER Accout number: [id number] Admission Date: 05-30-2019 : 1935 Admission Diagnosis: Attending: IGOR DIEHL Current LOS: 1 Anticipated DC Date: Planned Disposition: Inpatient Rehab Primary Insurance: MEDICARE A & B Discharge Planning Comments: CM met with patient's daughter per her request. She states that her father has lived at [facility] in ict account manager care since April. She states that she would like to see him get inpatient rehab here at [facility] prior to returning to [facility]. I informed her that he would need to participate in 3 hours of therapy a day to be a candidate for inpatient rehab. She would like a referral. 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 CM will continue to follow and assist with discharge planning/needs. Solar Design Engineer: Jasmin Davis DCPIA - Discharge Planning Initial Assessment Updated by [email or web address]: Jasmin Davis on 05/31/19 12:32 pm * How many steps to enter\exit or inside your home? 0/0 * Preadmission Environment Jail Custodial * Facility Name [facility] * ADLs Total Dependent * Other Equipment All equipment provided by [facility] * List name and contact numbers for known caregivers / representatives who currently or will assist patient after discharge: Nila Mckinley - DTR - [phone] * Verbal permission to speak to the caregivers and representatives has been obtained from the patient. Yes * Community resources currently utilized None * Additional services required to return to the preadmission environment? No * Can the patient safely return to the preadmission environment? Yes * Has this patient been hospitalized within the prior 30 days at any hospital? No External Providers External Provider: [facility] Next Contact Date: Service Request Date: Service Type: Resolution: Reviewer: Comments: Coverage Notice Reviewer: [id number] Bindu Davis Notice Issued Date-Time: 05/31/2019 12:36 Notice Type: Patient Choice Letter Notice Delivered To: Family Member Relationship to Patient: Daughter Classroom Monitor Name: Nila Mckinley Delivery Method: HAND - Hand Delivered Astrid Days: Prior Verbal Notification: Recipient Understood Notice: Yes Recipient Signature: Yes Med Rec Note Co-signed by Attending: Coverage Notice Comment: SAQIB for [facility] DP export: 05/31/19 11:42 Patient Name: ERICK HERNANDEZ Page [phone] at 1627 All edits/amendments must be made on the electronic document DICTATION DATE: 05/31/191626 AUTO MACHINIST: MG 05/31/191626 RPT#: [id number] DC DATE: STATUS: ADM IN [facility] [address] [place] [address] END OF REPORT
[2019-05-31 16:38] VITALS: BP 154/74
--- NOTE | 2019-05-31 18:15 | NUR ---
RESTING IN BED, EYES OPEN. NO C/O PAIN. NO S/S OF ACUTE DISTRESS NOTED. DENIES ANY NEEDS AT THIS TIME. CALL LIGHT IN REACH. AUDI ALARM ON. WILL CONTINUE TO MONITOR.
--- NOTE | 2019-05-31 19:08 | NUR ---
PATIENT RESTING IN BED WITH NO S/S OF DISTRESS. BROUGHT PATIENT A DRINK AND SET UP WITH STRAW PER HIS REQUEST. PATIENT DENIES OTHER NEEDS AT THIS TIME. BED IN LOWEST POSITION AND CALL LIGHT WITHIN REACH. ENCOURAGED THE PATIENT TO CALL IF HE HAS NEEDS. WILL CONTINUE TO MONITOR.
[2019-05-31 20:00] VITALS: BP 99/43
--- NOTE | 2019-05-31 21:51 | NUR ---
PATIENT RESTING IN BED WITH NO S/S OF DISTRESS. BROUGHT PATIENT A WARM BLANKET AND WATER PER HIS REQUEST. PATIENT IS BECOMING AGITATED AND PULLING OFF TELE AND ATTEMPTING TO PICK AT DRESSING TO LEFT HIP. PATIENT REFUSED EYE DROPS. ADMINISTERED ATIVAN PER ORDERS. BED IN LOWEST POSITION, CALL LIGHT WITHIN REACH, AND BED ALARM ON. PATIENT ALSO REFUSED TO HAVE SCD'S ON AT THIS TIME. ENCOURAGED THE PATIENT TO CALL IF HE HAS NEEDS. WILL CONTINUE TO MONITOR.
[2019-06-01] VITALS: BP 137/52
[2019-06-01 04:00] VITALS: BP 156/68
--- NOTE | 2019-06-01 06:31 | NUR ---
CLEANED PATIENT UP AFTER INCONTINENT EPISODE. PATIENT HAS STARTED TO PULL DRESSINGS OFF LEFT HIP. CHANGED DRESSINGS. ALSO ADMINISTERED PAIN MEDICATION PER ORDERS. PATIENT DENIES OTHER NEEDS AT THIS TIME. BED IN LOWEST POSITION, CALL LIGHT WITHIN REACH, AND BED ALARM ON. ENCOURAGED THE PATIENT TO CALL IF HE HAS NEEDS. WILL CONTINUE TO MONITOR.
--- NOTE | 2019-06-01 06:55 | NUR ---
RESTING IN BED, EYES CLOSED. RESPIRATIONS EVEN AND UNLABORED. NO C/O PAIN. NO S/S OF ACUTE DISTRESS NOTED. AROUSES TO VERBAL STIMULI. IV TO LEFT FOREARM, NS INFUSING @ 75ML/HR. SITE PATENT WITHOUT REDNESS OR SWELLING, WRAPPED IN KERLEX. PATIENT BEDFAST. DENIES ANY NEEDS AT THIS TIME. CALL LIGHT IN REACH. AUDI ALARM ON. WILL CONTINUE TO MONITOR.
[2019-06-01 06:57] LABS: BASOPHILS 0.2 % (0-2); EOSINOPHILS 2.7 % (0-7); HEMATOCRIT 33.3 % (42.0-54.0); HEMOGLOBIN 10.8 g/dL (13.5-17.5); IMMATURE GRANULOCYTES 0.1 % (0-5); LYMPHOCYTES 12.5 % (15-50); MCHC 32.4 g/dL (31.0-37.0); MCV 98.5 fL (80.0-100.0); MEAN PLATELET VOLUME 11.2 fL (7.4-10.4); MONOCYTES 14.2 % (2-11); NEUTROPHILS 70.3 % (40-80); PLATELET COUNT 257 10x3/uL (130-400); RBC 3.38 10x6/uL (4.20-6.10); RDW 12.8 % (11.5-14.5); WBC 11.6 10x3/uL (4.8-10.8)
[2019-06-01 08:22] VITALS: BP 160/62
[2019-06-01 12:37] VITALS: BP 100/50
[2019-06-01 16:02] VITALS: BP 135/65
--- NOTE | 2019-06-01 18:29 | NUR ---
RESTING IN BED, EYES CLOSED. RESPIRATIONS EVEN AND UNLABORED. NO S/S OF ACUTE DISTRESS NOTED. CALL LIGHT IN REACH. FALL PRECAUTIONS IN PLACE. DENIES ANY NEEDS AT THIS TIME.
--- NOTE | 2019-06-01 20:00 | NUR ---
ALERT BUT DISORIENTED TO PLACE,TIME AND SITUATION. IV TO THE LT FOREARM WITH NO REDNESS OR SWELLING. AUDI ALARM ON WITH SIDE RAILS X3. NO OTHER NEEEDS NOTED AT THIS TIME.
[2019-06-01 20:46] VITALS: BP 153/63
--- NOTE | 2019-06-01 23:30 | NUR ---
RECEIVED A CALL FROM ICU STATING THAT PT WAS IN UNCONTROLLED A-FIB AT A RATE OF 143. PRANAYESHERS CALLED AND WAS TOLD TO CONSULT CARDIOLOGY. CALLED MONITORS AFTER PHONE CALL, PT CONVERTED TO 138 SINUS TACH WITH PAC. WILL CONTINUE TO MONITOR.
[2019-06-02 01:11] VITALS: BP 124/74
[2019-06-02 05:43] VITALS: BP 117/68
[2019-06-02 05:55] LABS: BASOPHILS 0.1 % (0-2); EOSINOPHILS 1.3 % (0-7); HEMATOCRIT 27.2 % (42.0-54.0); IMMATURE GRANULOCYTES 0.2 % (0-5); LYMPHOCYTES 10.6 % (15-50); MCH 31.8 pg (26.0-34.0); MCHC 33.1 g/dL (31.0-37.0); MEAN PLATELET VOLUME 10.9 fL (7.4-10.4); MONOCYTES 13.9 % (2-11); NEUTROPHILS 73.9 % (40-80); PLATELET COUNT 243 10x3/uL (130-400); RBC 2.83 10x6/uL (4.20-6.10); RDW 12.5 % (11.5-14.5); WBC 10.1 10x3/uL (4.8-10.8)
[2019-06-02 05:57] LABS: MCV 96.1 fL (80.0-100.0)
--- NOTE | 2019-06-02 08:00 | NUR ---
SPOKE WITH CATALINA FAGAN ABOUT PATIENT HR. NEW ORDERS RECIEVED AND CARRIED OUT.
[2019-06-02 08:24] VITALS: BP 89/47
[2019-06-02 12:21] VITALS: BP 96/57
--- NOTE | 2019-06-02 13:57 | NUR ---
NUTRITION F/U CHART REVIEWED. PT VISIT. PT REPORTS HE IS NOT HUNGRY. NO INTAKE BREAKFAST OR LUNCH. RETAIL PHARMACY MERCHANDISER STATES SHE CAN NOT GET PT TO EAT. ORDERED ENSURE WITH MEALS. MAY REQUIRE NUTRITION SUPPORT (PEG VS DOBHOFF TUBE) IF PO DOES NOT IMPROVE. RD FOLLOWING
[2019-06-02 15:56] VITALS: BP 137/74
--- NOTE | 2019-06-02 19:30 | NUR ---
PT LYING IN BED ON RIGHT SIDE SLEEPING. WAKES TO VERBAL STIMULI. ORIENTED TO SELF ONLY. IV LEFT FA INFUSING NS @ 75. DRESSING TO LEFT HIP CDI. SCDS ON. HR [address] ST PER TELE. DENIES NEEDS. CL IN REACH, AUDI ON. WILL CTM
[2019-06-02 20:00] VITALS: BP 167/88
--- NOTE | 2019-06-02 21:35 | NUR ---
PT MOANING OUT IN PAIN STATING HIS BACK HURTS. GAVE MORPHINE ORDERED. WILL CTM
--- NOTE | 2019-06-02 22:00 | NUR ---
RECIEVED CALL FROM COMMUNITY PLACEMENT WORKER PT CONVERTED TO 130S UNCONTROLLED AFIB. CALLED AND SPOKE WITH DR MILTON. ORDERS RECIEVED FOR 400MG AMIODARONE PO NOW AND 400MG AMIODARONE IN AM TO BE GIVEN IN ADDITION TO ALREADY SCHEDULED 200MG. GAVE MED ORDERED. WILL CTM
--- NOTE | 2019-06-03 00:05 | NUR ---
BOTTOM CRANE OPERATOR CALLED AND STATED PT CONVERTED TO [address] ST
[2019-06-03 01:10] VITALS: BP 183/97
--- NOTE | 2019-06-03 01:30 | NUR ---
MEDICAL ASSISTANT DERMATOLOGY CALLED AND STATED PT HR 108 UNCONTROLLED AFIB
[2019-06-03 05:12] VITALS: BP 142/58
[2019-06-03 06:51] LABS: BASOPHILS 0.2 % (0-2); EOSINOPHILS 1.6 % (0-7); HEMATOCRIT 32.1 % (42.0-54.0); HEMOGLOBIN 10.8 g/dL (13.5-17.5); IMMATURE GRANULOCYTES 0.2 % (0-5); LYMPHOCYTES 8.7 % (15-50); MCH 32.1 pg (26.0-34.0); MCHC 33.6 g/dL (31.0-37.0); MCV 95.5 fL (80.0-100.0); MEAN PLATELET VOLUME 10.7 fL (7.4-10.4); MONOCYTES 11.7 % (2-11); NEUTROPHILS 77.6 % (40-80); RBC 3.36 10x6/uL (4.20-6.10); RDW 12.2 % (11.5-14.5)
[2019-06-03 07:20] LABS: CALC OSMOLALITY 271 mosm/kg (275-300); CALCIUM 7.4 mg/dL (8.5-10.1); CARBON DIOXIDE 28.4 mmol/L (21.0-32.0); CHLORIDE - SERUM 102 mmol/L (98-107); CREATININE - SERUM 0.8 mg/dL (0.6-1.3); GLUCOSE 92 mg/dL (74-106); POTASSIUM - SERUM 3.2 mmol/L (3.5-5.1); SODIUM 136 mmol/L (136-145); UREA NITROGEN 13 mg/dL (7-18); eGFR NON AFRICAN AMERICAN > 90 mL/min (90-120)
[2019-06-03 07:28] LABS: PLATELET COUNT 299 10x3/uL (130-400)
--- NOTE | 2019-06-03 09:00 | NUR ---
ASSESSMENT PER FLOW SHEET. PT IS WITHOUT DISTRESS.MONITOR FOR NEEDS.FALL PREVENTION IN PLACE.DOOR OPEN
[2019-06-03 11:20] VITALS: BP 104/65
--- NOTE | 2019-06-03 13:43 | MORECARE ---
CASE MANAGEMENT DISCHARGE SUMMARY PATIENT: ERICK HERNANDEZ UNIT: [id number] ADM DATE: 05/30/19 AGE: 84 : 34 SEX: M ROOM/BED: D.2225 AUTHOR: WILLIAM KURTZ PHYSICIAN: REFERRING PHYSICIAN: IGOR DIEHL MD DATE OF SERVICE: 06/03/19 Discharge Plan Patient Name: ERICK HERNANDEZ Facility: [facility]:[place] : 1935 Planned Disposition: Inpatient Rehab Anticipated Discharge Date: Discharge Date: Expected LOS: Initial Reviewer: [id number] Initial Review Date: 05/31/2019 Generated: 06/03/19 2:43 pm Comments DCP- Discharge Planning Updated by [id number]: Jasmin Davis on 06/03/19 12:[address] Updated clinical faxed to [facility]. I spoke with Hermelinda and informed of possible discharge tomorrow. CM will continue to follow and assist with discharge planning/needs. DCP- Discharge Planning Updated by [id number]: Jasmin Davis on 05/31/19 11:[address] Patient Name: ERICK HERNANDEZ Admission Status: ER Accout number: [id number] Admission Date: 05-30-2019 : 1935 Admission Diagnosis: Attending: IGOR DIEHL Current LOS: 1 Anticipated DC Date: Planned Disposition: Inpatient Rehab Primary Insurance: MEDICARE A & B Discharge Planning Comments: CM met with patient's daughter per her request. She states that her father has lived at [facility] in usp care since April. She states that she would like to see him get inpatient rehab here at [facility] prior to returning to [facility]. I informed her that he would need to participate in 3 hours of therapy a day to be a candidate for inpatient rehab. She would like a referral. 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 CM will continue to follow and assist with discharge planning/needs. Street Cleaner: Jasmin Davis DCPIA - Discharge Planning Initial Assessment Updated by [id number]: Jasmin Davis on 05/31/19 12:32 pm * How many steps to enter\exit or inside your home? 0/0 * Preadmission Environment Detention Longterm * Facility Name [facility] * ADLs Total Dependent * Other Equipment All equipment provided by [facility] * List name and contact numbers for known caregivers / representatives who currently or will assist patient after discharge: Nila Mckinley - R - [phone] * Verbal permission to speak to the caregivers and representatives has been obtained from the patient. Yes * Community resources currently utilized None * Additional services required to return to the preadmission environment? No * Can the patient safely return to the preadmission environment? Yes * Has this patient been hospitalized within the prior 30 days at any hospital? No Coverage Notice Reviewer: [email or web address] Bindu Davis Notice Issued Date-Time: 05/31/2019 12:36 Notice Type: Patient Choice Letter Notice Delivered To: Family Member Relationship to Patient: Daughter Director [employer] Name: Nila Mckinley Delivery Method: HAND - Hand Delivered Astrid Days: Prior Verbal Notification: Recipient Understood Notice: Yes Recipient Signature: Yes Med Rec Note Co-signed by Attending: Coverage Notice Comment: SAQIB for [facility] Last DP export: 05/31/19 3:27 Patient Name: ERICK HERNANDEZ Page [phone] at 1343 All edits/amendments must be made on the electronic document DICTATION DATE: 06/03/19 1342 GROUP PROGRAM MANAGER: MG 06/03/19 1342 RPT#: [id number] DC DATE: STATUS: ADM IN [facility] [address] [place] [address] END OF REPORT
--- NOTE | 2019-06-03 16:11 | NUR ---
RESTING,WITHOUT NEEDS.CALL LIGHT IN REACH.DOOR OPEN
[2019-06-03 16:29] VITALS: BP 108/59
--- NOTE | 2019-06-03 19:19 | NUR ---
PAIN MEDS ORDERED PER OCT.FALL PREVENTION REMAINS IN PLACE.STILL NO STOOLS TODAY. STOOL COLLECTION NEEDED REPORTED TO ASSEMBLY ASSOCIATE.CONT PLAN OF CARE
--- NOTE | 2019-06-03 19:40 | NUR ---
PT LYING IN BED RESTING WITHOUT DISTRESS, ORIENTED TO SELF ONLY. IV LEFT FA INFUSING NS @ 75. SCDS ON. HR 91 CONTROLLED AFIB PER TELE. PT STILL NEEDS STOOL SAMPLE, HAS NOT HAD BM TODAY. FALL PRECAUTIONS IN PLACE, AUDI ON. WILL CTM
[2019-06-03 21:27] VITALS: BP 107/49
--- NOTE | 2019-06-03 23:00 | NUR ---
PT MOANING OUT STATING HE IS PAIN. GAVE MORPHINE ORDERED. DENIES OTHER NEEDS. FALL PRECAUTIONS IN PLACE, AUDI ON. CL IN REACH, WILL CTM
[2019-06-04 05:26] VITALS: BP 129/57
[2019-06-04 06:54] LABS: BASOPHILS 0.1 % (0-2); EOSINOPHILS 1.9 % (0-7); HEMATOCRIT 27.8 % (42.0-54.0); HEMOGLOBIN 9.3 g/dL (13.5-17.5); IMMATURE GRANULOCYTES 0.2 % (0-5); LYMPHOCYTES 11.2 % (15-50); MCH 31.7 pg (26.0-34.0); MCHC 33.5 g/dL (31.0-37.0); MCV 94.9 fL (80.0-100.0); MEAN PLATELET VOLUME 10.7 fL (7.4-10.4); MONOCYTES 12.6 % (2-11); PLATELET COUNT 331 10x3/uL (130-400); RBC 2.93 10x6/uL (4.20-6.10); RDW 12.3 % (11.5-14.5); WBC 9.5 10x3/uL (4.8-10.8)
[2019-06-04 07:14] LABS: CALC OSMOLALITY 272 mosm/kg (275-300); CALCIUM 7.5 mg/dL (8.5-10.1); CARBON DIOXIDE 26.4 mmol/L (21.0-32.0); CHLORIDE - SERUM 105 mmol/L (98-107); CREATININE - SERUM 0.7 mg/dL (0.6-1.3); GLUCOSE 92 mg/dL (74-106); POTASSIUM - SERUM 3.5 mmol/L (3.5-5.1); SODIUM 136 mmol/L (136-145); UREA NITROGEN 16 mg/dL (7-18); eGFR NON AFRICAN AMERICAN > 90 mL/min (90-120)
[2019-06-04 08:34] VITALS: BP 162/66
--- NOTE | 2019-06-04 09:58 | NUR ---
Rehab Note- Acute Inpatient Rehab prescreen order received. The patient is too low level for inpatient acute rehab as he would have to be able to particiapte in the 3hrs/day of therapy per Medicare guidelines. Spoke with PAMELA Castellanos. Thank you for this referral! Babs Hawkins RN Clinical Liaison, [facility] Rehab
[2019-06-04 12:52] VITALS: BP 121/58
--- NOTE | 2019-06-04 13:08 | MORECARE ---
CASE MANAGEMENT DISCHARGE SUMMARY PATIENT: ERICK HERNANDEZ UNIT: [id number] ADM DATE: 05/30/19 AGE: 84 : 34 SEX: M ROOM/BED: D.2225 AUTHOR: WILLIAM KURTZ PHYSICIAN: REFERRING PHYSICIAN: IGOR DIEHL MD DATE OF SERVICE: 06/04/19 Discharge Plan Patient Name: ERICK HERNANDEZ Facility: [facility]:[place] : 1935 Planned Disposition: Inpatient Rehab Anticipated Discharge Date: Discharge Date: Expected LOS: Initial Reviewer: [email or web address] Initial Review Date: 05/31/2019 Generated: 06/04/19 2:07 pm Comments DCP- Discharge Planning Updated by [email or web address]: Jasmin Davis on 06/04/19 12:[address] Discharging today to [facility] to a skilled (Medicare) bed. He has not been able to sit up since surgery and will go via non emergent ambulance transfer. His daughter is in the room and informed. Je states Dr. Diehl will get the Rx for [place] to [facility]. DC orders/MAR faxed to the [facility]. CM will continue to follow and assist with discharge planning/needs. DCP- Discharge Planning Updated by [id number]: Jasmin Davis on 06/03/19 12:[address] Updated clinical faxed to [facility]. I spoke with Hermelinda and informed of possible discharge tomorrow. CM will continue to follow and assist with discharge planning/needs. DCP- Discharge Planning Updated by [id number]: Jasmin Davis on 05/31/19 11:[address] Patient Name: ERICK HERNANDEZ Admission Status: ER Accout number: [id number] Admission Date: 05-30-2019 : 1935 Admission Diagnosis: Attending: IGOR DIEHL Current LOS: 1 Anticipated DC Date: Planned Disposition: Inpatient Rehab Primary Insurance: MEDICARE A & B Discharge Planning Comments: CM met with patient's daughter per her request. She states that her father has lived at [facility] in customer retention representative care since April. She states that she would like to see him get inpatient rehab here at [facility] prior to returning to [facility]. I informed her that he would need to participate in 3 hours of therapy a day to be a candidate for inpatient rehab. She would like a referral. 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 CM will continue to follow and assist with discharge planning/needs. Associate Media Director: Jasmin Davis DCPIA - Discharge Planning Initial Assessment Updated by [id number]: Jasmin Davis on 05/31/19 12:32 pm * How many steps to enter\exit or inside your home? 0/0 * Preadmission Environment [facility] [employer] * Facility Name [facility] * ADLs Total Dependent * Other Equipment All equipment provided by [facility] * List name and contact numbers for known caregivers / representatives who currently or will assist patient after discharge: Nila Mckinley - DTR - [phone] * Verbal permission to speak to the caregivers and representatives has been obtained from the patient. Yes * Community resources currently utilized None * Additional services required to return to the preadmission environment? No * Can the patient safely return to the preadmission environment? Yes * Has this patient been hospitalized within the prior 30 days at any hospital? No Coverage Notice Reviewer: [id number] Bindu Davis Notice Issued Date-Time: 05/31/2019 12:36 Notice Type: Patient Choice Letter Notice Delivered To: Family Member Relationship to Patient: Daughter Brake Press Operator Name: Nila Mckinley Delivery Method: HAND - Hand Delivered Astrid Days: Prior Verbal Notification: Recipient Understood Notice: Yes Recipient Signature: Yes Med Rec Note Co-signed by Attending: Coverage Notice Comment: [facility] for [facility] Reviewer: [id number] Bindu Davis Notice Issued Date-Time: 06/04/2019 12:16 Notice Type: IM Discharge Notice Notice Delivered To: Family Member Relationship to Patient: Daughter Brake Press Operator Name: Nila Delivery Method: HAND - Hand Delivered Astrid Days: Prior Verbal Notification: Recipient Understood Notice: Yes Recipient Signature: Yes Med Rec Note Co-signed by Attending: Coverage Notice Comment: IMM explained, signed, given, copy placed in MR Last DP export: 06/03/19 12:43 Patient Name: ERICK HERNANDEZ Page [id number] at 1308 All edits/amendments must be made on the electronic document DICTATION DATE: 06/04/191306 TRAINING PROGRAM ASSISTANT: MG 06/04/191306 RPT#: [id number] DC DATE: STATUS: ADM IN [facility] [address] [place] [address] END OF REPORT
--- NOTE | 2019-06-04 14:33 | NUR ---
Pt is high risk for skin breakdown. 84 y/o, galdino 16, hx of falls and p/o hip (05/30 left trochanteric nail). Recommend: -turn/repositioning q 2 hours (with legs remaining in abduction with proper support -encourage po intake -q shift skin assessments Wound care will monitor.
[2019-06-04 15:51] VITALS: BP 135/65
--- NOTE | 2019-06-04 16:49 | NUR ---
REPORT CALLED TO NURSE AT [facility] AT THIS TIME. AMBULANCE TO TRANSFER BACK. PATIENT IV REMOVED EARLIER WITH CATH TIP INTACT. CALL LIGHT WITHIN REACH. WILL CONTINUE TO MONITOR. WAITING ON AMBULANCE AT THIS TIME.
--- NOTE | 2019-06-04 17:45 | NUR ---
PATIENT ESCORTED OUT OF BED INTO STRETCHER X 3 ASSIST. PATIENT CONFUSED AND YELLING HE DOESNT WANT TO GO. ABLE TO GET PATIENT SAFELY ON STRETCHER AT THIS TIME. NOTIFIED DAUGHTER AT LONG-TERM THAT PATIENT WAS CONFUSED AND SCARED AT THIS TIME. DAUGHTER ASKING ABOUT NORCO TABS FOR PAIN THAT CM STATED PATIENT WOULD BE RECIEVING. STATED SHE WOULD CALL CM TOMORROW. PATIENT ESCORTED DOWN TO AMBULANCE WITH PERSONAL [facility]ONG[facility] TO TRANSPORT TO [facility].
--- NOTE | 2019-06-05 11:31 | MORECARE ---
CASE MANAGEMENT DISCHARGE SUMMARY PATIENT: ERICK HERNANDEZ UNIT: [id number] ADM DATE: 05/30/19 AGE: 84 : [birth year] SEX: M ROOM/BED: D.2225 AUTHOR: WILLIAM KURTZ PHYSICIAN: REFERRING PHYSICIAN: IGOR DIEHL MD DATE OF SERVICE: 06/05/19 Discharge Plan Patient Name: ERICK HERNANDEZ Facility: [facility]:[place] : 1935 Planned Disposition: Inpatient Rehab Anticipated Discharge Date: Discharge Date: 06/04/2019 Expected LOS: Initial Reviewer: [email or web address] Initial Review Date: 05/31/2019 Generated: 06/05/19 12:31 pm Comments DCP- Discharge Planning Updated by [email or web address]: Jasmin Davis on 06/04/19 12:[address] Discharging today to [facility] to a skilled (Medicare) bed. He has not been able to sit up since surgery and will go via non emergent ambulance transfer. His daughter is in the room and informed. Je states Dr. Diehl will get the Rx for [place] to [facility]. DC orders/MAR faxed to [facility]. CM will continue to follow and assist with discharge planning/needs. DCP- Discharge Planning Updated by [id number]: Jasmin Davis on 06/03/19 12:[address] Updated clinical faxed to [facility]. I spoke with Hermelinda and informed of possible discharge tomorrow. CM will continue to follow and assist with discharge planning/needs. DCP- Discharge Planning Updated by [email or web address]: Jasmin Davis on 05/31/19 11:[address] Patient Name: ERICK HERNANDEZ Admission Status: ER Accout number: [id number] Admission Date: 05-30-2019 : 1935 Admission Diagnosis: Attending: IGOR DIEHL Current LOS: 1 Anticipated DC Date: Planned Disposition: Inpatient Rehab Primary Insurance: MEDICARE A & B Discharge Planning Comments: CM met with patient's daughter per her request. She states that her father has lived at [facility] in halfway care since April. She states that she would like to see him get inpatient rehab here at [facility] prior to returning to [facility]. I informed her that he would need to participate in 3 hours of therapy a day to be a candidate for inpatient rehab. She would like a referral. 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 CM will continue to follow and assist with discharge planning/needs. Integrity Manager: Jasmin Davis DCPIA - Discharge Planning Initial Assessment Updated by VERO: Jasmin Davis on 05/31/19 12:32 pm * How many steps to enter\exit or inside your home? 0/0 * Preadmission Environment [facility] * Facility Name [facility] * ADLs Total Dependent * Other Equipment All equipment provided by [facility] * List name and contact numbers for known caregivers / representatives who currently or will assist patient after discharge: Nila Mckinley - DTR - [phone] * Verbal permission to speak to the caregivers and representatives has been obtained from the patient. Yes * Community resources currently utilized None * Additional services required to return to the preadmission environment? No * Can the patient safely return to the preadmission environment? Yes * Has this patient been hospitalized within the prior 30 days at any hospital? No Coverage Notice Reviewer: [id number] Bindu Davis Notice Issued Date-Time: 05/31/2019 12:36 Notice Type: Patient Choice Letter Notice Delivered To: Family Member Relationship to Patient: Daughter Embroiderer Hand Name: Nila Mckinley Delivery Method: HAND - Hand Delivered Astrid Days: Prior Verbal Notification: Recipient Understood Notice: Yes Recipient Signature: Yes Med Rec Note Co-signed by Attending: Coverage Notice Comment: SAQIB for [facility] Reviewer: [email or web address] Bindu Davis Notice Issued Date-Time: 06/04/2019 12:16 Notice Type: IM Discharge Notice Notice Delivered To: Family Member Relationship to Patient: Daughter Embroiderer Hand Name: Nila Delivery Method: HAND - Hand Delivered Astrid Days: Prior Verbal Notification: Recipient Understood Notice: Yes Recipient Signature: Yes Med Rec Note Co-signed by Attending: Coverage Notice Comment: IMM explained, signed, given, copy placed in MR Last DP export: 06/04/19 12:08 p Patient Name: ERICK HERNANDEZ Page [id number] at 1131 All edits/amendments must be made on the electronic document DICTATION DATE: 06/05/19 1131 TEST RACK OPERATOR: MG 06/05/19 1131 RPT#: [id number] DC DATE:06/04/19 STATUS: DIS IN [facility] [address] [place] [address] END OF REPORT
--- NOTE | 2019-06-09 14:07 | EC ---
PATIENT:ERICK HERNANDEZ DATE OF SERVICE: 05/30/19 SEX: M MEDICAL RECORD: [id number] DATE OF : 33 LOCATION:D.[facility] [place] AGE OF PATIENT: 84 ADMISSION DATE: 05/30/19 REFERRING PHYSICIAN: INTERPRETING PHYSICIAN: FLY OLIVAS MD ECHOCARDIOGRAM REPORT ECHO CHARGES 4 ECHO COMPLETE Date: 06/02/19 CLINICAL DIAGNOSIS: ATRIAL FIB HX CAD/CABG ECHOCARDIOGRAPHIC MEASUREMENTS (adult normal given) AC root (d.<3.7cm) 3.5 cm LV Septum d (<1.2 cm> 1.1 cm Valve Excursion 1.9 cm LV Septum (systole) 1.3 cm Left Atria (s.<4.0cm> 4.9 cm LVPW d(<1.2cm) 1.2 cm RV (d.<2.3cm) 3.9 cm LVPW (sytole) 1.5 cm LV diastole(<5.6CM) 4.4 cm MV E-F(>70mm/sec) cm LV systole 3.1 cm LVOT Diameter 1.8 cm MV exc.(>10mm) 1.8 cm Est.ejection fraction (50-75%) % DOPPLER: LVIT cm/sec A cm/sec E 67.0 cm/sec LA cm/sec RVSP 66 mmHg LVOT 85 cm/sec AOP1/2T m/s Asc. Ao 207 cm/sec RVOT 71 cm/sec RA cm/sec PA 110 cm/sec AV Gradient Peak 17.12mmHg AV Mean 11.95mmHg AV Area 3.3 cm MV Gradient Peak 11.00mmHg MV Mean 5.31 mmHg MV Area cm COMMENTS: Retail Loan Originator Assistant: Ebony ARSHAD Ultrasonographer: 1 Dr. Olivas TAPE# PACS Pericardial Effusion N DATE OF SERVICE: PROCEDURE: Echo. FINDINGS: 1. Left ventricular chamber size is within normal limits. Left ventricular systolic function is preserved at 55% to 60%. 2. Left atrium is enlarged at 4.9 cm. Right atrium and right ventricular chamber sizes are within normal limits. 3. Valvular structures have normal structure and motion. ECHOCARDIOGRAM REPORT [id number] ERICK HERNANDEZ 4. Doppler interrogation reveals mild mitral regurgitation, moderate tricuspid regurgitation, no other valvular insufficiency or stenosis. Pulmonary systolic pressure is elevated estimated at 66 mmHg. 5. No evidence of pericardial effusion or left ventricular thrombus. 6. The patient is in atrial fibrillation during the study. TRANSINT:[id number] Voice Confirmation ID: [id number] DOCUMENT ID: [id number] FLY OLIVAS MD at 1407 CC: [id number] DICTATION DATE: 06/02/19 1601 DELIVERY DRIVER/CUSTOMER SERVICE: 06/03/19 0007 DIS IN 06/04/19 [id number] [place] [address]
== END 2019-06-04 18:51 | DRG 481 ==
LOC: D.ER 23:11 → D.MS 05-30 00:36
PROVIDERS: Emergency Medicine; Orthopaedic Surgery; ADMIT Legal Medicine; ATTEND Legal Medicine
PROC: 0QS706Z Reposition Left Upper Femur with Intramedullary Internal Fixation Device, Open Approach (ICD-10-PCS; principal; 2019-05-30 13:30)
DX: S72.142A Displaced intertrochanteric fracture of left femur, initial encounter for closed fracture (principal); I48.92 Unspecified atrial flutter; W19.XXXA Unspecified fall, initial encounter; Z91.81 History of falling; Y92.129 Unspecified place in nursing home as the place of occurrence of the external cause; F03.90 Unspecified dementia, unspecified severity, without behavioral disturbance, psychotic disturbance, mood disturbance, and anxiety; I48.91 Unspecified atrial fibrillation; D72.829 Elevated white blood cell count, unspecified; D64.9 Anemia, unspecified; I95.9 Hypotension, unspecified

== ENCOUNTER 2019-06-30 00:09 | Emergency (ER) | payer MEDICARE, BC ==
[~2019-06-30] VITALS: Ht 162.6 cm; Wt 63.6 kg
[2019-06-30 00:10] VITALS: Ht 162.6 cm; Wt 63.6 kg
[2019-06-30] MEDS ORDERED: PACERONE100 MG PO (00:20)
[2019-06-30] MEDS ORDERED: UROXATRAL10 MG PO (00:21)
[2019-06-30] MEDS ORDERED: TRUSOPT 2 % OPT10 ML RIGHT EYE (00:22)
[2019-06-30] MEDS ORDERED: TRUSOPT 2 % OPT10 ML (00:22)
[2019-06-30] MEDS ORDERED: ACETAMINOPHEN325 MG PO (00:26)
[2019-06-30] MEDS ORDERED: MIRALAX17 GM PO (00:27)
[2019-06-30] MEDS ORDERED: HYDROCODON-ACE1 EAC7 PO (00:29)
[2019-06-30] MEDS ORDERED: ATIVAN0.5 MG PO (00:30)
[2019-06-30 02:11] VITALS: BP 154/85
== END 2019-06-30 02:11 | disposition home or self-care (01) ==
LOC: D.ER 00:09
DX: M25.552 Pain in left hip (principal); W19.XXXA Unspecified fall, initial encounter; Y93.9 Activity, unspecified; Y92.9 Unspecified place or not applicable